=== PATIENT | female | born 1980 | race Caucasian/White ===

== ENCOUNTER 2023-06-10 16:02 | Emergency (ER) | payer BC, SELFPAY ==
--- NOTE | ~2023-06-10 | XR_ITS ---
EXAMINATION: XR nasal bones min 3V DATE: 06/10/2023 16:33 INDICATION: Nose pain. Fall. TECHNIQUE: 3 views of the nasal bones were obtained. COMPARISON: None. FINDINGS: Bone alignment is normal. No fracture. IMPRESSION: 1. Normal nasal bones. Reviewed, dictated and finalized at location E. IMPRESSION: 1. Normal nasal bones.
--- NOTE | 2023-06-10 16:03 | ED.HEATRA ---
HPI - Head Injury General Chief complaint: Fall Stated complaint: Nose injury Time Seen by Provider: 06/10/23 16:03 Source: patient Mode of arrival: ambulatory Limitations: no limitations History of Present Illness HPI Narrative: Aida is a 42-year-old female patient presenting to the clinic today with complaints of a nose injury that occurred Tuesday of last week. She reports she fell face forward on some concrete and injured her nose. States she did have some epistaxis at that time but does not know which side the epistaxis occurred in her nose. States she has tenderness over the cartilage of the nose and difficulty taking a breath through her nose. Consult today a ENT today and they requested her to come in and get x-rays and a disc. Related Data Home Medications Medication Instructions Recorded Confirmed buprenorphine 8 mg-naloxone 2 mg 1 tablet sublingual DAILY 06/10/23 06/10/23 sublingual tablet Allergies Allergy/AdvReac Type Severity Reaction Status Date / Time Sulfa (Sulfonamide Allergy Rash Verified 06/10/23 16:20 Antibiotics) Review of Systems Review of Systems: Pertinent positives per HPI. Patient denies any fever, chills, rash, headache, visual changes, dizziness, cough, shortness of breath, chest pain, palpitations, nausea, vomiting, diarrhea, constipation, abdominal pain, or any urinary issues. PMFSH Comments At the time of my signature, I reviewed and agree with the nursing past medical, surgical, social, and family history. There is no relevant family history pertinent to the patient complaint. Exam Narrative: General: Well-developed, well nourished, in no apparent distress Head: Normocephalic, atraumatic Eyes: Pupils equally round and reactive to light bilaterally, EOM intact, sclera and conjunctive clear, no discharge, lids normal Ears: TMs intact and clear, ear canals clear, no drainage, grossly hearing normal. Nose: Nares patent, no discharge, mild inflammation, no sinus tenderness. No tenderness over the nasal bridge, tenderness over the distal cartilage of the nose Mouth: Oral pharynx without lesions or masses, good dentition, MMM. Neck: Supple, trachea midline, no enlargement of anterior or posterior cervical nodes, no thyroid masses or goiter palpable. Cardio: Regular rate and rhythm, s1 and s2 normal, no murmur appreciated. Resp: Clear to auscultation bilaterally, no rhonchi, rales, wheezing or rubs Course Course Emergency Course: Portions of this record may have been created with voice recognition software. Level of Care: Express Care Visit Vital Signs Vital signs: Vital signs reviewed MDM - Head Injury MDM Narrative Medical decision making narrative: At the time of visit patient is resting comfortably on the exam table. Patient appears to be nontoxic. Diagnostics: X-ray of the nasal bone was negative for fracture or malalignment. Plan: I suspect patient has a nasal contusion. Supportive measures were discussed with the patient and they voiced understanding discharge instructions and agrees to treatment plan. Return precautions reviewed Differential Diagnosis Differential diagnosis: Likely closed head injury and other (Nasal bone fracture, nasal contusion, epistaxis, nasal trauma) Imaging Data Radiologist's impression: ITS Impressions Nasal Bones X-Ray 06/10/23 16:34 IMPRESSION: 1. Normal nasal bones. Discharge Plan Discharge Clinical Impression: Contusion of nose, initial encounter Patient Disposition: Home, Self-Care Condition: Stable Instructions: Antibiotic Form, Contusion in Adults (ED) Additional Instructions: X-ray of the nasal bone is negative for any sign of fracture or malalignment. May apply an ice pack to the affected area to help alleviate pain/swelling-20 minutes at a time on and 20 minutes off Increase fluids and stay well hydrated Tylenol/motrin for pain/fever Flonase and OTC antihistam
[2023-06-10 16:21] VITALS: BP 130/78; PULSE 96; RESP 16; TEMP 36.6; O2SAT 100
== END 2023-06-10 16:42 | disposition home or self-care (01) ==
PROVIDERS: Emergency Provider Nurse Practitioner Family; PCP Family Medicine
DX: S00.33XA Contusion of nose, initial encounter (principal); W19.XXXA Unspecified fall, initial encounter
CPT/HCPCS: 70160; 99213; G0463

== ENCOUNTER 2024-08-10 06:31 | Inpatient (IN) | payer BC, SELFPAY ==
--- NOTE | ~2024-08-10 | CT_ITS ---
CT of the Abdomen and Pelvis: Indication: Abdominal pain Technique: 2.5 mm axial scans were obtained through the abdomen and pelvis following intravenous adm inistration of 100 cc of Omnipaque 350. Dose reduction technique was used on this scan by utilizing a utomated exposure control and iterative reconstruction technique. The dose-length product (DLP) was 6 48.49 mGy-cm. Findings: Scans through the lung bases are unremarkable. The liver, spleen, pancreas, gallbladder, adrenals and kidneys are within normal limits. No evidence of aortic aneurysm. No lymphadenopathy. There is circumferential wall thickening of the distal sigmoid colon, with relative caliber change an d prominent stool upstream from the area of wall thickening. Findings suggest mild partial or early l arge bowel obstruction with suspected underlying sigmoid colonic neoplasm. Infectious/inflammatory co litis would be a potential alternative consideration. Images through the pelvis were performed. Urinary bladder unremarkable. No definite adnexal mass pres ent, there is somewhat prominent appearance of the cervix with small nabothian cysts present. Trace p elvic ascites present. Impression: Circumferential wall thickening of the distal sigmoid colon, with prominent stool upstream from this area, suspicious for colonic adenocarcinoma with early or partial large bowel obstruction. Infectious /inflammatory colitis would be a potential alternative consideration. Prominent appearance of the cervix, nonspecific. Reviewed, dictated and finalized at location M. Impression: Circumferential wall thickening of the distal sigmoid colon, with prominent sto ol upstream from this area, suspicious for colonic adenocarcinoma with early or partial large bowel obstruction. Infectious/inflammatory colitis would be a po tential alternative consideration. Prominent appearance of the cervix, nonspecific.
--- NOTE | ~2024-08-10 | US_ITS ---
Pelvic ultrasound. Clinical History: Pelvic pain, torsion Technique: Realtime transabdominal and transvaginal scanning of the pelvis was performed. Color flow Doppler and Doppler spectral analysis were performed. Findings: The uterus is anteverted, and measures 9.1 x 4.3 x 5.1 cm. The endometrial stripe has a th ickness of 5 mm. Myometrium is heterogeneous without definite discrete focal mass. The right ovary measures 2.8 x 2.0 x 3.3 cm. No significant right ovarian or adnexal mass is seen. The left ovary measures 3.4 x 1.9 x 2.6 cm. No significant left ovarian or adnexal mass is seen. Vascular flow probably present in both ovaries on Doppler spectral analysis. There is small amount of free fluid in the cul de sac. Impression: No definite evidence for torsion. Small amount of free fluid. Heterogeneous myometrium without discrete focal mass. Reviewed, dictated and finalized at [facility]. Impression: No definite evidence for torsion. Small amount of free fluid. Heterogeneous myometrium without discrete focal mass.
--- NOTE | ~2024-08-10 | XR_ITS ---
XR abdomen/kub 1V Ordering provider: Leela Hale MD History: . abdominal pain . Comparison: None. FINDINGS: BOWEL: Bowel is distended with gases. Nonobstructive bowel gas pattern. ORGANOMEGALY: None. SIGNIFICANT PATHOLOGIC CALCIFICATIONS: None. OTHER: No free air is seen under the diaphragm. IMPRESSION: NO ACUTE ABDOMINAL FINDINGS. Reviewed, dictated and finalized at location A.
[2024-08-10 06:34] VITALS: BP 129/94; PULSE 79; RESP 11; TEMP 37.2; O2SAT 97
[2024-08-10 06:46] LABS: BEDSIDEPREGUCG Negative (Negative)
[2024-08-10 06:53] LABS: Basophils Absolute Auto 0.1 K/mm3 (0.0-0.1); Basophils Percent Auto 0.4 % (0.2-1.2); Eosinophils Percent Auto 0.2 % (0-4.4); Hematocrit 41.6 % (37.0-47.0); Hemoglobin 13.5 g/dL (12.0-15.0); Immature Granulocyte Absolute 0.07 K/mm3 (0.00-0.031); Immature Granulocyte Percent A 0.4 % (0-0.5); Lymphocytes Percent Auto 10.5 % (18.3-44.2); Mean Corpuscular HGB Conc 32.5 g/dl (32-36); Mean Corpuscular Hemoglobin 33.1 pg (26-34); Mean Platelet Volume 9.8 fl (7.4-10.4); Monocytes Absolute Auto 0.9 K/mm3 (0.1-0.6); Monocytes Percent Auto 4.9 % (2.6-8.5); Neutrophils Absolute Auto 15.2 K/mm3 (1.3-6.7); Neutrophils Percent Auto 83.6 % (45.5-73.1); Platelet Count Result 417 k/mm3 (150-375); Red Blood Count 4.08 M/mm3 (4.2-5.4); Red Cell Distribution Width 13.4 % (11.5-14.5); White Blood Count 18.1 K/mm3 (4.5-10.0)
[2024-08-10 07:06] LABS: Add Urine Microscopic? YES; Alanine Aminotransferase 17 U/L (6-35); Albumin Level 4.4 g/dL (3.5-5.1); Alkaline Phosphatase 51 U/L (38-126); Anion Gap 8 mmol/L (4-12); Appearance Urine Cloudy (Clear); Aspartate Amino Transferase 28 U/L (14-36); Bacteria Urine Rare /hpf; Bilirubin Urine 1+ (Negative); Bilirubin,Total 0.5 mg/dL (0.2-1.3); Blood Urea Nitrogen 10 mg/dL (7-17); Blood Urine Negative (Negative); Calcium 9.5 mg/dL (8.4-10.2); Carbon Dioxide 28 mmol/L (22-30); Chloride 102 mmol/L (98-107); Color Urine Dark Yellow (Yellow); Estimated CRCL calculation 81 ml/min; Estimated Glomerular Filt Rate > 60; Glucose 114 mg/dL (65-110); Glucose Urine UA Negative (Negative); Ketones Urine 2+ mg/dL (Negative); Leukocyte Esterase Ur 1+ LEU/UL (Negative); Lipase 157 U/L (23-300); Mucus Urine Present /lpf; Need Manual Microscopic Reviewed; Nitrate Urine Negative (Negative); Protein Urine Trace mg/dL (Negative); Sodium 138 mmol/L (137-145); Specific Grav Ur 1.027 (1.001-1.035); Squamous Epithelial Cell Urine Many /hpf (Few); Total Protein 7.7 g/dL (6.3-8.2); pH Urine 5.5 (5.0-9.0)
[2024-08-10] MEDS: ONDANSETRON INJ 4 MG/2 ML VIAL IV PUSH (07:14)
[2024-08-10] MEDS: MORPHINE SULFATE (*CRX) 4 MG/ML INJ IV PUSH (07:14)
--- NOTE | 2024-08-10 07:21 | ED_ITS ---
HPI - Abdominal Pain General Chief Complaint: Abdominal Pain Stated Complaint: abd pain Time Seen by Provider: 08/10/24 06:56 History of Present Illness HPI narrative: Yesterday patient started having severe pain to her right lower abdomen, this comes and goes, has been intermittently much worse and better, accompanied with nausea vomiting. She was also having some dysuria so thought that a may be a UTI, started taking Macrobid and nausea medicine, however now the pain has come back strong. Related Data Home Medications ?Medication ?Instructions ?Recorded ?Confirmed ?Last Taken ?Type buprenorphine 8 mg-naloxone 2 mg 1 tablet sublingual DAILY 06/10/23 06/10/23 Unknown History sublingual tablet Allergies Allergy/AdvReac Type Severity Reaction Status Date / Time Sulfa (Sulfonamide Allergy Rash Verified 06/10/23 16:20 Antibiotics) Review of Systems 2 Review of Systems: All systems reviewed & are unremarkable except as noted in HPI and below Exam 2 Narrative: EXAMINATION OF ORGAN SYSTEMS/BODY AREAS: Constitutional: Vital signs per nursing GENERAL: Appears quite comfortable in the bed HEAD: Normal with no signs of head trauma. EYES: EOMI, conjunctiva normal ENT: Hearing grossly intact LUNGS: Nonlabored breathing. HEART: [Regular rate and rhythm] ABD: [Soft], some tenderness to palpation right lower quadrant EXT: Normal range of motion SKIN: [No rashes or lesions.] NEURO: [Alert and oriented x 3. No gross focal sensory or strength deficits.] PSYCH: Normal affect Course Vital Signs Vital signs: Vital Signs Temperature 99 F 08/10/24 06:34 Pulse Rate 79 08/10/24 06:34 Respiratory Rate 11 L 08/10/24 06:34 Blood Pressure 129/94 H 08/10/24 06:34 Pulse Oximetry 97 08/10/24 06:34 Oxygen Delivery Room Air 08/10/24 06:34 Temperature 99 F 08/10/24 06:34 Pulse Rate 90 08/10/24 10:04 Respiratory Rate 18 08/10/24 10:04 Blood Pressure 122/88 08/10/24 10:04 Pulse Oximetry 100 08/10/24 10:04 Oxygen Delivery Room Air 08/10/24 06:34 MDM - Abdominal Pain MDM Narrative Medical decision making narrative: Electronic medical record was reviewed. Patient presented to the ED with complaint of [right lower abdominal pain and vomiting]. Vitals [were within acceptable limits]. Physical exam revealed soft abdomen with tenderness to the right lower/suprapubic abdomen. Based on the patient's history and physical exam, my differential includes but is not limited to [ovarian torsion, pyelonephritis, appendicitis, constipation, gastroenteritis]. [IV access was established by nursing staff. Patient was given zofran, morphine]. CBC, BMP, lipase, LFTs, bilirubin and alk phos, UA were obtained. Labs were pertinent for white count 18; UA consistent with possible UTI so this plus her white count, I have started antibiotics. Transvaginal ultrasound without any obvious ovarian abnormality. [Decision was made to obtain a CT-abdomen to evaluate for acute abdominal process. CT-abdomen per radiology interpretation concerning for signs of possible adenocarcinoma of colon with bowel obstruction] Findings discussed with patient. 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 Discussed case with Gastroenterology plan for possible colonoscopy on Tuesday. Discussed case with general surgery who will consult on patient and discussed case with hospitalist. Patient still having consistent pain. She is on Suboxone, additional doses of pain medication provided. She is agreeable to admission for pain control and further workup. Lab Data 08/10/24 06:45 08/10/24 06:45 Labs: Lab Results 08/10/24 Range/Units 06:45 WBC 18.1 H (4.5-10.0) K/mm3 RBC 4.08 L (4.2-5.4) M/mm3 Hgb 13.5 (12.0-15.0) g/dL Hct 41.6 (37.0-47.0) % MCV 102.0 H (80-100) fl MCH 33.1 (26-34) pg MCHC 32.5 (32-36) g/dl RDW 13.4 (11.5-14.5) % Plt Count 417 H (150-375) k/mm3 MPV 9.8 (7.4-10.4) fl Immature Gran % (Auto) 0.4 (0-0.5) % Neut % (Auto) 83.6 H (45.5-73.1) % Lymph % (Auto) 10.5 L (18.3-44.2) % Nance % (Auto) 4.9 (2.6-8.5) % Eos % (Auto) 0.2 (0-4.4) % Baso % (Auto) 0.4 (0.2-1.2) % Lymph # (Auto) 1.90 (0.9-3.2) K/mm3 Nance # (Auto) 0.9 H (0.1-0.6) K/mm3 Eos # (Auto) 0.0 (0-0.3) K/mm3 Baso # (Auto) 0.1 (0.0-0.1) K/mm3 Abs Immat Gran (auto) 0.07 H (0.00-0.031) K/mm3 Absolute Neuts (auto) 15.2 H (1.3-6.7) K/mm3 Absolute Nucleated RBC 0.000 (0.0-0.012) K/mm3 Nucleated RBC % 0.0 (0.0-0.2) % Sodium 138 (137-145) mmol/L Potassium 4.0 (3.4-5.0) mmol/L Chloride 102 (98-107) mmol/L Carbon Dioxide 28 (22-30) mmol/L Anion Gap 8 (4-12) mmol/L BUN 10 (7-17) mg/dL Creatinine 0.83 (0.7-1.0) mg/dL Estim Creat Clear Calc 81 ml/min Estimated GFR > 60 (59 - ) Glucose 114 H (65-110) mg/dL Calcium 9.5 (8.4-10.2) mg/dL Total Bilirubin 0.5 (0.2-1.3) mg/dL AST 28 (14-36) U/L ALT 17 (6-35) U/L Alkaline Phosphatase 51 (38-126) U/L Total Protein 7.7 (6.3-8.2) g/dL Albumin 4.4 (3.5-5.1) g/dL Lipase 157 (23-300) U/L Urine Color Dark yellow (Yellow) Urine Appearance Cloudy H (Clear) Urine pH 5.5 (5.0-9.0) Ur Specific [place] 1.027 (1.001-1.035) Urine Protein Trace (Negative) mg/dL Urine Glucose (UA) Negative (Negative) mg/dL Urine Ketones 2+ H (Negative) mg/dL Ur Blood (Man) Negative (Negative) Urine Nitrate Negative (Negative) Urine Bilirubin 1+ H (Negative) Urine Urobilinogen 1.0 (<2.0) mg/dL Add Ur Microanalysis Reviewed Leukocyte Esterase Rfl 1+ H (Negative) MEENU/UL Urine RBC 3-5 H (0-2) /hpf Urine WBC 11-20 H (0-3) /hpf Ur Squamous Epith Cells Many H (Few) /hpf Urine Bacteria Rare /hpf Urine Casts 3-5 Urine Mucus Present /lpf POC Urine HCG, Qual Negative (Negative) Imaging Data Radiologist's impression: ITS Impressions Abdomen/Pelvis CT 08/10/24 07:50 Impression: Circumferential wall thickening of the distal sigmoid colon, with prominent stool upstream from this area, suspicious for colonic adenocarcinoma with early or partial large bowel obstruction. Infectious/inflammatory colitis would be a potential alternative consideration. Prominent appearance of the cervix, nonspecific. Transvaginal US 08/10/24 08:24 Impression: No definite evidence for torsion. Small amount of free fluid. Heterogeneous myometrium without discrete focal mass. Discharge Plan Discharge Clinical Impression: Large bowel obstruction Patient Disposition: Still a Patient Condition: Serious Instructions: Antibiotic Form Patient Language: Kiswahili Prescriptions: No Action buprenorphine-naloxone 8-2 mg tablet, sublingual 1 tablet SUBLINGUAL DAILY Follow-up/Referrals: UNKNOWN,DOCTOR [Primary Care Provider] -
--- OUTSIDE RECORDS SUMMARY | 2024-08-10 07:21 | XMS_ITS | Data Portability ---
Author Organization [facility]ly [facility] Address [address] [place] [address] Care Team Providers Care Supervisor Compressed Yeast Name Role Phone SADAF GABRIEL Referring Provider [phone] ML STEVENS Urogynecologist Assessment No assessment recorded. Plan of Treatment Reminders Order Date Submit Date Provider Last Modified By Organization Details Last Modified Time Details Appointments None recorded. Lab progesteron e, serum 2021 [facility], [address], [place], [address], 23:33:30 testosteron e, free + total, serum 2021 [employer] [facility], [address], [place], [address], 05:50:09 estradiol, serum 2021 [facility], [address], [place], [address], 05:50:11 lh + FSH, serum 2021 [facility], [address], [place], [address], 05:50:10 urinalysis, dipstick 01/06/ 2022 01/06/2 022 [email or web address] 1 In-Office Order, Internal Use Only DO Not Attach Compendium DO Not Attach Compendium, Do Not Delete/merge, [id number] 08:49:25 estradiol, serum 2020 [facility] ([facility] [address] , [place], [address], 16:33:16 progesteron e, serum 2020 [facility] ([facility]), [address] , [place], [address], 16:33:16 testosteron e, total, serum 2020 [facility] ([facility]), [address] , [place], [address], 16:33:16 urinalysis, dipstick 2020 [email or web address] 1 In-Office Order, Internal Use Only DO Not Attach Compendium DO Not Attach Compendium, Do Not Delete/merge, [id number] 13:09:07 Referral breast surgery referral 2021 [email or web address] Jyoti Caballero MD (Virtual Visits Available), [address] , [place], [address], 12:44:33 [email or web address] physical therapy referral - Please note Centralized Provider Scheduling does not schedule for the intended provider or specialty and is routing the referral to the specialists practice for scheduling. 2020 [email or web address] Not available 14:12:26 Procedures None recorded. Surgeries None recorded. Imaging MAMMO, screening, tomosynthes is, bilateral 2021 [facility], [address] , [place], [address], 15:40:21 Medication Orders Diazepam 10 mg suppositori es - CAG 2020 021 ABBY [facility], [address], [address], 16:31:26 Patient TargetsNo targets recorded. Patient Instructions Encounter Date Encounter Id Patient Instructions Last Modified By Organization Details Last Modified Time 10/17/2020 [id number] Bladder Pain Syndrome (BPS): Care Instructions [email or web address] Not available 10/17/2020 13:09:07 Reason for Referral Urogynecology Physical Thera py Referral for Pelvic floor dysfunction PF dysfunction, IC, and chronic constipation Please note Centralized Provider Scheduling does not schedule for the intended provider or specialty and is routing the referral to the specialists practice for scheduling. Referring Physician: Ml Stevens Urogynecology, Encounter Date: 10/17/2020 Breast Surgery Referral for BRCA1 gene mutation detected hx abnormal genetic testing w/family hx of breast cancer. ASHLYN obtained to get records Referring Physician: Ml Stevens Urogynecology, Encounter Date: 02/26/2021 Results Created Date Observation Date Name Description Value Unit Range Abnormal Flag Note LastModifiedBy Organization Detail LastModifiedTime 10/18/1910/17/2020 urina lysis , dipst ick Glucose Negati ve Not Available In-Office Order Internal Use Only DO Not Attach Compendium DO Not Attach Compendium, Do Not Delete/merge, [id number] 10/17/2020 12:50:25 10/18/1910/17/2020 urina lysis , dipst ick Bilirubin Negati ve Not Available In-Office Order Internal Use Only DO Not Attach Compendium DO Not Attach Compendium, Do Not Delete/merge, [id number] 10/17/2020 12:50:25 10/18/1910/17/2020 urina lysis , dipst ick Ketone Negati ve Not Available In-Office Order Internal Use Only DO Not Attach Compendium DO Not Attach Compendium, Do Not Delete/merge, [id number] 10/17/2020 12:50:25 10/18/1910/17/2020 urina lysis , dipst ick Specific [place] <=1.00 5 (Ref range: 1.005- 1.030) Not Available In-Office Order Internal Use Only DO Not Attach Compendium DO Not Attach Compendium, Do Not Delete/merge, [facility] 10/17/2020 12:50:25 10/18/1910/17/2020 urina lysis , dipst ick Occult Blood Trace- intact Not Available In-Office Order Internal Use Only DO Not Attach Compendium DO Not Attach Compendium, Do Not Delete/merge, [facility] 10/17/2020 12:50:25 10/18/1910/17/2020 urina lysis , dipst ick pH 6.5 (Ref range: 5.0-8. 0) Not Available In-Office Order Internal Use Only DO Not Attach Compendium DO Not Attach Compendium, Do Not Delete/merge, [facility] 10/17/2020 12:50:25 10/18/1910/17/2020 urina lysis , dipst ick Protein Negati ve Not Available In-Office Order Internal Use Only DO Not Attach Compendium DO Not Attach Compendium, Do Not Delete/merge, [facility] 10/17/2020 12:50:25 10/18/1910/17/2020 urina lysis , dipst ick Urobilinogen 0.2 (Ref range: 0.2-1. 0 EU/dl) Not Available In-Office Order Internal Use Only DO Not Attach Compendium DO Not Attach Compendium, Do Not Delete/merge, [facility] 10/17/2020 12:50:25 10/18/1910/17/2020 urina lysis , dipst ick Nitrite Negati ve Not Available In-Office Order Internal Use Only DO Not Attach Compendium DO Not Attach Compendium, Do Not Delete/merge, [id number] 10/17/2020 12:50:25 10/18/1910/17/2020 urina lysis , dipst ick Leukocytes Negati ve Not Available In-Office Order Internal Use Only DO Not Attach Compendium DO Not Attach Compendium, Do Not Delete/merge, [facility] 10/17/2020 12:50:25 10/18/19 21 10/17/2020 urina lysis , dipst ick Appearance Clear Not Available In-Offi ce Order Internal Use Only DO Not Attach Compendium DO Not Attach Compendium, Do Not Delete/merge, [facility] 10/17/2020 12:50:25 10/18/19 21 10/17/2020 urina lysis , dipst ick Color Yellow Not Available In-Office Order Internal Use Only DO Not Attach Compendium DO Not Attach Compendium, Do Not Delete/merge, [facility] 10/17/2020 12:50:25 02/26/19 22 02/26/2021 urina lysis , dipst ick Glucose Negati ve Not Available In-Office Order Internal Use Only DO Not Attach Compendium DO Not Attach Compendium, Do Not Delete/merge, [facility] 02/26/2021 08:46:26 02/26/19 22 02/26/2021 urina lysis , dipst ick Bilirubin Negati ve Not Available In-Office Order Internal Use Only DO Not Attach Compendium DO Not Attach Compendium, Do Not Delete/merge, [facility] 02/26/2021 08:46:26 02/26/19 22 02/26/2021 urina lysis , dipst ick Ketone Negati ve Not Available In-Office Order Internal Use Only DO Not Attach Compendium DO Not Attach Compendium, Do Not Delete/merge, [facility] 02/26/2021 08:46:26 02/26/19 22 02/26/2021 urina lysis , dipst ick Specific [place] >=1.03 0 (Ref range: 1.005- 1.030) Not Available In-Office Order Internal Use Only DO Not Attach Compendium DO Not Attach Compendium, Do Not Delete/merge, [facility] 02/26/2021 08:46:26 02/26/19 22 02/26/2021 urina lysis , dipst ick Occult Blood Negati ve Not Available In-Office Order Internal Use Only DO Not Attach Compendium DO Not Attach Compendium, Do Not Delete/merge, [facility] 02/26/2021 08:46:26 02/26/19 22 02/26/2021 urina lysis , dipst ick pH 5.5 (Ref range: 5.0-8. 0) Not Available In-Office Order Internal Use Only DO Not Attach Compendium DO Not Attach Compendium, Do Not Delete/merge, 02/26/2021 08:46:26 02/26/19 22 02/26/2021 urina lysis , dipst ick Protein Negati ve Not Available In-Office Order Internal Use Only DO Not Attach Compendium DO Not Attach Compendium, Do Not Delete/merge, 02/26/2021 08:46:26 02/26/19 22 02/26/2021 urina lysis , dipst ick Urobilinogen 0.2 (Ref range: 0.2-1. 0 EU/dl) Not Available In-Office Order Internal Use Only DO Not Attach Compendium DO Not Attach Compendium, Do Not Delete/merge, 02/26/2021 08:46:02/26/1902/26/2021 urina lysis , dipst ick Nitrite Negati ve Not Available In-Office Order Internal Use Only DO Not Attach Compendium DO Not Attach Compendium, Do Not Delete/merge, 02/26/2021 08:46:26 02/26/19 22 02/26/2021 urina lysis , dipst ick Leukocytes Negati ve Not Available In-Office Order Internal Use Only DO Not Attach Compendium DO Not Attach Compendium, Do Not Delete/merge, 02/26/2021 08:46:02/26/1902/26/2021 urina lysis , dipst ick Appearance Clear Not Available In-Offi ce Order Internal Use Only DO Not Attach Compendium DO Not Attach Compendium, Do Not Delete/merge, 02/26/2021 08:46:26 02/26/19 22 02/26/2021 urina lysis , dipst ick Color Dark Yellow Not Available In-Office Order Internal Use Only DO Not Attach Compendium DO Not Attach Compendium, Do Not Delete/merge, [id number] 02/26/2021 08:46:26 03/27/1903/27/2021 LH FSH 8.2 mIU/m L Erlinda l Range s Male 1.5-1 2.4 mIU/m L Femal e Folli cular 3.5-1 2.5 mIU/m L Mid Cycle 4.7-2 1.5 mIU/m L Lutea l 1.7-7 .7 mIU/m L Post Menop ausal 25.8- 134.8 mIU/m L Metho dolog y is Raysa elect raysa milum inesc ence immun oassa y metho d. Sampl es shoul d not be taken from patie nts recei ving thera py with high bioti n doses (i.e. >5 mg/da y) until at least 8 hours follo wing the last bioti n admin istra tion. For diagn ostic purpo ses, the resul lorena nieto s be asses sed in conju nctio n with the patie nt's medic al histo ry, clini jovanny exami natio n and other findi ngs. Not Available [facility] [address], [place], [address], 03/27/2021 23:33:27 03/27/19 22 03/28/2021 LH LH 5.2 mIU/m L Erlinda l Range s Male 1.7-8 .6 mIU/m l Femal e Folli cular 2.4-1 2.6 mIU/m l Mid Cycle 14.0- 95.6 mIU/m l Lutea l 1.0-1 1.4 mIU/m l Post Menop ausal 13.1- 86.5 mIU/m l Metho dolog y is Raysa elect raysa milum inesc ence immun oassa y metho d. Sampl es shoul d not be taken from patie nts recei ving thera py with high bioti n doses (i.e. >5 mg/da y) until at least 8 hours follo wing the last bioti n admin istra tion. For diagn ostic purpo ses, the resul ts susan rivas alway s be asses sed in conju nctio n with the patie nt's medic al histo ry, clini jovanny exami natio n and other findi ngs. Not Available [place] [address], [place], [address], 03/27/2021 23:33:27 03/27/19 22 03/28/2021 ESTRA DIOL estradiol 39.3 pg/mL Erlinda l Range s Femal e Folli cular 87.7- 173 pg/mL Ovula tion 435-9 08 pg/mL Lutea l 207-3 63 pg/mL Post Menop ausal 51.6- 314 pg/mL Male 41.0- 91.9 pg/mL Metho dolog y is Raysa elect raysa milum inesc ence immun oassa y. Sampl es shoul d not be taken from [facility] recei ving thera py with high bioti n doses (i.e. >5 mg/da y) until at least 8 hours follo wing the last bioti n admin istra tion. For diagn ostic purpo ses, the resul lorena nieto s be asses sed in conju nctio n with [facility], clini jovanny exami natio n and other findi ngs. Not Available [place] [address], [place], [address], 03/27/2021 23:33:28 03/27/19 22 03/28/2021 PROGE STERO NE progesterone 0.241 NG/mL Erlinda l Range s Femal e Folli cular 0.183 - 0.282 ng/mL Ovula tion 1.94 - 6.09 ng/mL Lutea l 13.5 - 20.3 ng/mL Post Menop ausal 0.108 - 0.151 ng/mL Male 0.139 - 0.193 ng/mL Metho dolog y is Raysa elect raysa milum inesc ence immun oassa y metho d. Sampl es shoul d not be taken from patie nts recei ving thera py with high bioti n doses (i.e. >5 mg/da y) until at least 8 hours follo wing the last bioti n admin istra tion. For diagn ostic purpo ses, the resul lorena rivas alway s be asses sed in conju nctio n with the patie nt's medic al histo ry, clini jovanny exami natio n and other findi ngs. Not Available [place] [address], [place], [address], 03/27/2021 23:33:30 03/27/19 22 03/27/2021 TESTO STERO NE, FREE, BIOAV AILAB LE, TOTAL sex hormone binding glob. 37 nmol/ L 17-124 Not Available [place] [address], [place], [address], 04/01/2021 05:18:25 03/27/19 22 04/01/2021 TESTO STERO NE, FREE, BIOAV AILAB LE, TOTAL testosterone , total 25 NG/dL 2-45 For addit ional infor ariella laura e refer to http: //[facility] jemima horowitz.que stdia gnost ics.c om/fa q/ Total Testo stero neLCM [facility] Q165 (This link is being provi ded for infor maninder godoy/ educa molly l purpo ses only. ) This test was devel jeannette and its chon tical perfo rmanc e mine cteri stics have been deter mined by [facility] [place] [place]. It has not been clear ed or appro aristides by the U.S. Food and Drug Admin istra tion. This assay has been valid ated pursu ant to the CLIA regul ation s and is used for clini jovanny purpo ses. Not Available [place] [address], [place], [address], 04/01/2021 05:18:25 03/27/19 22 04/01/2021 TESTO STERO NE, FREE, BIOAV AILAB LE, TOTAL testosterone , free 2.7 pg/mL 0.2-5. 0 Not Available [place] [address], [place], [address], 04/01/2021 05:18:25 03/27/19 22 04/01/2021 TESTO STERO NE, FREE, BIOAV AILAB LE, TOTAL testosterone , bioavailable 5.4 NG/dL 0.5-8. 5 Not Available [facility] [address], [place], [address], 04/01/2021 05:18:25 03/27/19 22 04/01/2021 TESTO STERO NE, FREE, BIOAV AILAB LE, TOTAL albumin 4.4 g/dL 3.6-5. 1 Not Available [facility] [address], [place], [address], 04/01/2021 05:18:25 05/09/19 22 08/30/2019 MRI, catalino t, bilat eral, w/wo contr ast No observ ation record ed. BARCODE Not Available 2021 16:58:30 05/09/19 22 12/02/2018 MAMMO , laurae teresa, bilat eral No observ ation record ed. BARCODE Not Available 2021 16:58:30 Result Notes None recorded. Problems Name Problem SNOMED Code Status Onset Date Resolution Date Notes Provider Name and Address Organization Details Recorded Time Pelvic floor dysfunction 529854210 Active [address] [facility] 2 08:23:12 Menopausal symptom 44911573 Active [address] [facility] 2 08:23:12 Chronic interstitial cystitis 898215916 Active 2020 Rikara Arellano [facility], [facility] 2 08:23:12 Opioid dependence 53208384 Active [address] [facility] 2 08:23:12 Bipolar disorder 96986489 Active 2020 [facility] [address] [facility] 2 08:23:12 Body mass index 30+ - obesity 908407963 Active [address] [facility] 2 08:23:12 Depressive disorder 09021107 Active 2020 Rikara Arellano null, [facility] 2 08:23:12 Attention deficit hyperactivity disorder, predominantly inattentive type 46341272 Active 2020 Rikara Arellano null, [facility] 2 08:23:12 BRCA1 gene mutation detected 793955892 Active 2021 Ml Stevens NP [address] , [place], [address], [facility] 2 15:38:34 Screening for malignant neoplasm of breast Active 2021 Ml Stevens NP [address] , [place], [address], [facility] 2 15:39:56 Irregular periods 17048052 Active 2021 Ml Stevens NP [address] , [place], [address], [facility] 2 05:48:48 Problem Notes None recorded. Procedures Surgical History Date Name Laterality Status Provider Name and Address Organization Details Recorded Time 08/07/19 22 Procedure cancelled [facility] 08/06/2021 08:56:25 06/26/19 22 In and Out Catheterization completed [facility] 06/25/2021 11:39:54 10/18/19 21 In and Out Catheterization completed Ml Stevens NP [address], [place], [address], [facility] 10/18/2020 21:29:26 09/22/19 21 Date of Last Mammogram completed [facility] 10/17/2020 11:22:37 09/22/19 20 Date of Last Pap Smear completed [facility] 10/17/2020 11:22:13 09/22/19 20 Date of Last Colonoscopy completed [facility] 10/17/2020 11:23:38 reconstruction of facial bones completed [facility] 10/17/2020 11:30:34 lithotripsy completed [facility] 10/17/2020 11:30:58 Imaging Results None recorded. Procedure Notes None recorded. Medical Equipment None Reported. Allergies Allergen ID Allergen Name Allergen Category Reaction Reaction Severity Criticality Documentation Date Start Date Code Code System Note Provider Name and Address Organization Details Recorded Time [id number] Substance with sulfonami de structure and antibacte rial mechanism of action (substanc e) medicatio n rash Not available Not available 10/17/2020 [address] [facility] 1 11:20:45 1699065 Bactrim medicatio n Not available Not available Not available 02/26/2021 97987 [address] [facility] 2 08:23:04 Medications Name Sig Start Date Stop Date Status Note LastModified by Organization Details LastModified Time Diazepam 10 mg suppositori es - CAG insert one every 8 hours PRN pain 2020 active Not Available Not Available Not Avai lable quetiapine 25 mg tablet TAKE 1 TO 2 TABLETS BY MOUTH AT BEDTIME active Not Available Not Available No t Available clonidine HCl 0.1 mg tablet TAKE 1 TABLET BY MOUTH EVERY DAY FOR 90 DAYS active Not Available Not Available No t Available prednisone 20 mg tablet TAKE 1 TABLET BY MOUTH EVERY DAY FOR 5 DAYS active Not Available Not Available No t Available Elmiron 100 mg capsule Take 1 capsule 3 times a day by oral route as needed. 2020 active Not Available Not Available Not Avai lable Concerta 36 mg tablet,exte nded release TAKE 1 TABLET BY MOUTH EVERY DAY IN THE MORNING active Not Available Not Available No t Available fluoxetine 10 mg capsule TAKE ONE CAPSULE BY MOUTH ONE TIME DAILY 10/17 completed Not Available Not Available Not Available propranolol 20 mg tablet TAKE ONE TO TWO TABLETS BY MOUTH ONE TIME NEEDED DIRECTED 10/17 completed Not Available Not Available Not Available amoxicillin 875 mg-potassiu m clavulanate 125 mg tablet TAKE 1 TABLET BY MOUTH EVERY 12 HOURS FOR 10 DAYS active Not Available Not Available No t Available Concerta 27 mg tablet,exte nded release TAKE 1 TABLET BY MOUTH EVERY DAY IN THE MORNING FOR 30 DAYS active Not Available Not Available No t Available buprenorphi ne 8 mg-naloxone 2 mg sublingual tablet DISSOLVE 2 TABLETS UNDER THE TONGUE EVERY DAY active Not Available Not Available No t Available moxifloxaci n 0.5 % eye drops active Not Available Not Available Not Available nitrofurant oin monohydrate /macrocryst als 100 mg capsule TAKE 1 CAPSULE BY MOUTH TWICE A DAY FOR 10 DAYS active Not Available Not Available No t Available Suboxone 8 mg-[address] 2 films every day by sublingua l route. active Not Available Not Available No t Available Latuda 40 mg tablet Take 1 tablet every day by oral route. active Not Available Not Available No t Available Viibryd 40 mg tablet TAKE 1 TABLET BY MOUTH EVERY DAY WITH FOOD FOR 30 DAYS active Not Available Not Available No t Available Latuda 60 mg tablet TAKE 1 TABLET BY MOUTH EVERY DAY WITH FOOD active Not Available Not Available No t Available ID NOW COVID-19 Test Kit TEST DIRECTED TODAY active Not Available Not Available No t Available Vitals Date Recorded Respiratory rate Oxygen saturation Oxygen saturation in Arterial blood by Pulse oximetry Heart rate Systolic blood pressure Diastolic blood pressure Provider Name and Address Organization Details Last Updated DateTime 2 16 /min 98 % 98 % 97 /min 110 mm[Hg] 80 mm[Hg] Rika Arellano [facility] 2 08:45:01 Date Recorded Heart rate Systolic blood pressure Diastolic blood pressure Provider Name and Address Organization Details Last Updated DateTime 06/25/2021 84 /min 129 mm[Hg] 80 mm[Hg] Oma Palacio [facility] 06/25/2021 11:39:18 Date Recorded Body temperature Heart rate Oxygen saturation Oxygen saturation in Arterial blood by Pulse oximetry Systolic blood pressure Diastolic blood pressure Provider Name and Address Organization Details Last Updated DateTime 1 98.2 [degF] 70 /min 99 % 99 % 110 mm[Hg] 76 mm[Hg] Radha Kendall [facility]How do you roll? [facility] 1 11:38:40 Social History Question Answer Notes LastModified by [employer] Details LastModified Time Tobacco Smoking Status Former Smoker Radha Kendall [place] [facility] 10/17/2020 11:29:36 What Is Your Level Of Caffeine Consumption? Moderate Information not available 10/17/2020 Sex: Unknown Functional Status Question Answer Note LastModified by [employer] Details LastModified Time Do you use any illicit or recreational drugs? No Information not available 10/17/2020 Do you or have you ever used any other forms of tobacco or nicotine? No Information not available 10/17/2020 What is your level of alcohol consumption? Occasional Information not available 10/17/2020 Mental Status None recorded. Family History Relationship Description Onset Age of this Age Resolved Age Notes LastModified by Organization Details LastModified Time Paternal Grandmother Malignant tumor of breast [email or web address] Not available 2020 11:26:19 Mother Malignant neoplasm of ovary [email or web address] Not available 2020 11:26:42 Father Malignant tumor of pancreas [email or web address] Not available 2020 11:27:08 Paternal Grandfather Malignant tumor of pancreas [email or web address] Not available 2020 11:27:59 Maternal Grandfather Malignant tumor of pancreas [email or web address] Not available 2020 11:28:06 Medical History No medical history recorded. Gynecological History Statement/Question Response Pain with intercourse N Abnormal Pap N Date of Last Mammogram 09/21/2020 Date of Last Colonoscopy 09/22/2019 Date of LMP 10/15/2020 Date of Last Pap Smear 09/22/2019 Mammogram Result Normal Obstetrics History GPAL:G 3 P 2 0 1 2 Type Value Full Term 2 Spontaneous 1 Living 2 Total 3 Immunizations Vaccine Type Date Status Note Provider Nam e and Address Organization Details Recorded Time COVID-19, mRNA, LNP-S, PF, 100 mcg/0.5mL dose or 50 mcg/0.25mL dose 05/31/[address] [facility] 02/26/2021 08:37:22 COVID-19, mRNA, LNP-S, PF, 100 mcg/0.5mL dose or 50 mcg/0.25mL dose 06/27/[address] [facility] 02/26/2021 08:37:22 Past Encounters Encounter ID Performer Location Encounter Start Date Encounter Closed Date Diagnosis/Indication Diagnosis SNOMED-CT Code Diagnosis ICD10 Code Diagnosis Note [id number] Ml Stevens NP [facility] [place] [address],[facility] [address] [place] [address] 10/17/2020 10:04:35 10/17/2020 12:40:54 Increased frequency of urination 530561736 R35.0 Chronic in terstitial cystitis 183827247 N30.10 Follow IC dietTry prelief PRNStart Aloe VeraMay consider hydroxyzin eMay need vaginal valium PRN or bladder instills.R TC in 4 months Pelvic merlyn or dysfunction 500648818 M62.9 Refer to PFPTUse vaginal valium PRNRTC in 4 months Menopausal symptom 62201 002 N95.1 Will draw hormones for baseline due to being symptomati c.RTC in 4 months. [id number] Ml Stevens NP [facility] [place] [address] [address] 02/26/2021 08:30:42 02/26/2021 09:08:41 Overactive urinary bladder 025631767 N32.81 Patient unsure if urine leakage is due to OAB or QUANG Desires UDS to determine how to proceed in the future with her urinary incontinen ce. Pelvic merlyn or dysfunction 148085719 M62.9 Improved Patient did not go to physical therapy or use vaginal Valium. Return to clinic for UDS Screening for malignant neoplasm of breast 623380554 Z12.39 BRCA1 gene mutation detected 418613545 Z15.01 Desires a referral to the [facility] has a history of abnormal BRCA testing and was getting more specific imaging more frequently . Release of informatio n obtained so trying to get her most recent imaging results along with the disc for the radiologis t to review. Return to clinic for UDS Irregular periods [id number] N92.6 Labs ordered based on results will determine plan of care at that point. [id number] Aarti Austin MD [facility] [place] [address] [address] [address] 03/27/2021 10:04:16 03/27/2021 11:49:26 Female stress incontinence [id number] N39.3 [id number] Aarti Austin MD [facility] [place] [address] [address] [address] 03/27/2021 09:02:56 03/27/2021 11:50:00 Female stress incontinence [id number] N39.3 Most bothered by QUANG and coital incontinen ce.Discuss ed urodynamic findings in detail with patient. 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 Plan for Bulkamid.R isks and benefits and alternativ es of the planned surgery were discussed with the patient.Di scussed risks include, but are not limited to hemorrhage , infection, damage to adjacent organs, bowel or bladder dysfunctio n, problems with intercours e and other healing abnormalit ies including dyspareuni a, scar tissue formation. She is aware that if QUANG persists after bulking there is also the option of adding incontinen ce ring if QUANG occurs with specific activities such as tennis or proceeding with midurethra l sling. Chronic in terstitial cystitis [id number] N30.10 Her IC was diagnosed many years ago and has improved with having children. 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 She recently went back to school and is starting a new career so this could trigger symptoms. Will monitor. Hyperhidrosis [id number] R61 Has hormone labs ordered. She will make f/u to discuss results and if no need or does not improve with hormones then would refer to derm. She c/o excessive sweating but it does seem to be associated with a significan t feeling of being hot that just comes on.Aarti Austin MD [id number] Aarti Austin MD [facility] [address],[facility] [address] [place] [address] 06/25/2021 10:04:24 06/25/2021 11:39:49 Female stress incontinence [id number] N39.3 Health Concerns Section Related Observation LastModified by Organization Detai ls LastModified Time None Recorded Concern Status LastModified by Organization Details LastModified Time None Recorded Advance Directives Directive None Recorded Payers Insurance Date Sequence Insurance Name Policy Number Policy Zamarripa Covered Member ID [id number] Member ID Guarantor Name 08/04/2021 1 [employer] [facility] (O) [id number] Amy Greenfield Geovani [id number] Bharti Olivo 04/10/2021 1 [place] [id number] Amy Olivo [id number] Bharti Olivo 10/17/2020 1 [facility] (PPO) Bharti Olivo [id number] Bharti Olivo Notes Date Note Type Note Provider Name and Address Organization Details Recorded Time 10/17/2020 text/html Patient is a 40 year old female who is being referred by Dr. Gabriel for the evaluation of Interstitial CystitisThe she was diagnosed with approximately 20 years ago. She states she had a cystoscopy with hydrodistention in the operating room with a biopsy. She was placed on Elmiron at that time and it was too expensive so she has not been on it for years. She feels her flares more with ovulation or right before her cycle but does not note it with diet. She does note that she has a worsening flare as well when she is not hydrated well. She used to take oral Valium does not seem to help her with her flares but she has not used anything like that in years. She is not on anything preventative either. She has tried oral contraceptives in the past and did not tolerate them well. Not interested in limiting her. That way. She did have an ablation which had minimized her bleeding but did not take it completely away. She thinks that she may be of menopause because she is having some hot flashes and irregular cycles especially over the last 3 to 4 months. When she has a flare I will consist of pain with urination and burning in the bladder along with pressure. She leaks urine with QUANG with laughing, sneezing, intercourse, exercising, and sometimes after stronger urge. She will sometimes wear a pad in which she will change it and is wet. She voids every 3-4 hours during the day and does not need to johns. She does not get up at night. She denies hematuria and recurrent UTIs. She does feel at times that she will empty. She denies prolapse. She has had chronic constipation for as long as she can remember which she has 2 bowel movements per week in which she does not strain. She is not a bowel regimen at this time. Her fluid intake consist of 40 ounces of water a day, 2 cups of coffee which it does not bother her, and occasional tea. She denies alcohol intake. She is sexually active without pain. She does not report vaginal dryness. She has had any treatments or seen any specialists for her urogyn complaints. Ml Stevens, TENANT RELATIONS COORDINATOR [address] , [place], [address], [facility] 10/18/2020 21:53:53 02/26/2021 text/html Ms. Olivo is a 40 yo female here for a 4 month follow up. Report things as far as her IC have improved and seem to be going good. She reports her stress urinary incontinence has gotten worse. She had a negative UA in office today. She wants to proceed with testing for her bladder before she does any treatment. She is not sure if her urinary incontinence is related to activity or bladder contractions. She does have a history of pelvic floor dysfunction she was prescribed diazepam however she states she never filled it because she didn't need it. She would like her hormones tested because her cycles are very irregular and she is sweating all the time. She would also like a referral to the breast center because she has a history of abnormal genetic testing in which when she was out of that area they would do MRIs and mammograms more frequently. She is to obtain a release of information of her most recent imaging along with the discs with the actual images on it to bring to her appointment for her mammogram. BRIANNE:10/17/2020 Patient is a 40 year old female who is being referred by Dr. Gabriel for the evaluation of Interstitial CystitisThe she was diagnosed with approximately 20 years ago. She states she had a cystoscopy with hydrodistention in the operating room with a biopsy. She was placed on Elmiron at that time and it was too expensive so she has not been on it for years. She feels her flares more with ovulation or right before her cycle but does not note it with diet. She does note that she has a worsening flare as well when she is not hydrated well. She used to take oral Valium does not seem to help her with her flares but she has not used anything like that in years. She is not on anything preventative either. She has tried oral contraceptives in the past and did not tolerate them well. Not interested in limiting her. That way. She did have an ablation which had minimized her bleeding but did not take it completely away. She thinks that she may be of menopause because she is having some hot flashes and irregular cycles especially over the last 3 to 4 months. When she has a flare I will consist of pain with urination and burning in the bladder along with pressure.She leaks urine with QUANG with laughing, sneezing, intercourse, exercising, and sometimes after stronger urge. She will sometimes wear a pad in which she will change it and is wet. She voids every 3-4 hours during the day and does not need to johns. She does not get up at night. She denies hematuria and recurrent UTIs. She does feel at times that she will empty.She denies prolapse. She has had chronic constipation for as long as she can remember which she has 2 bowel movements per week in which she does not strain. She is not a bowel regimen at this time.Her fluid intake consist of 40 ounces of water a day, 2 cups of coffee which it does not bother her, and occasional tea. She denies alcohol intake. She is sexually active without pain. She does not report vaginal dryness.She has had any treatments or seen any specialists for her urogyn complaints. Ml Stevens, TENANT RELATIONS COORDINATOR [address], [place], [address], [facility] 03/02/2021 05:50:08 03/27/2021 text/html She is here for urinary incontinence f/u/ She is most bothered by incontinence with activities - Tennis. 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 Has not had her hormone labs checked yet although they were ordered. BRIANNE: 02/26/2021Ms. Olivo is a 40 yo female here for a 4 month follow up. Report things as far as her IC have improved and seem to be going good. She reports her stress urinary incontinence has gotten worse. She had a negative UA in office today. She wants to proceed with testing for her bladder before she does any treatment. She is not sure if her urinary incontinence is related to activity or bladder contractions. She does have a history of pelvic floor dysfunction she was prescribed diazepam however she states she never filled it because she didn't need it. She would like her hormones tested because her cycles are very irregular and she is sweating all the time. She would also like a referral to the breast center because she has a history of abnormal genetic testing in which when she was out of that area they would do MRIs and mammograms more frequently. She is to obtain a release of information of her most recent imaging along with the discs with the actual images on it to bring to her appointment for her mammogram. BRIANNE:10/17/2020 Patient is a 40 year old female who is being referred by Dr. Gabriel for the evaluation of Interstitial CystitisThe she was diagnosed with approximately 20 years ago. She states she had a cystoscopy with hydrodistention in the operating room with a biopsy. She was placed on Elmiron at that time and it was too expensive so she has not been on it for years. She feels her flares more with ovulation or right before her cycle but does not note it with diet. She does note that she has a worsening flare as well when she is not hydrated well. She used to take oral Valium does not seem to help her with her flares but she has not used anything like that in years. She is not on anything preventative either. She has tried oral contraceptives in the past and did not tolerate them well. Not interested in limiting her. That way. She did have an ablation which had minimized her bleeding but did not take it completely away. She thinks that she may be of menopause because she is having some hot flashes and irregular cycles especially over the last 3 to 4 months. When she has a flare I will consist of pain with urination and burning in the bladder along with pressure.She leaks urine with QUANG with laughing, sneezing, intercourse, exercising, and sometimes after stronger urge. She will sometimes wear a pad in which she will change it and is wet. She voids every 3-4 hours during the day and does not need to johns. She does not get up at night. She denies hematuria and recurrent UTIs. She does feel at times that she will empty.She denies prolapse. She has had chronic constipation for as long as she can remember which she has 2 bowel movements per week in which she does not strain. She is not a bowel regimen at this time.Her fluid intake consist of 40 ounces of water a day, 2 cups of coffee which it does not bother her, and occasional tea. She denies alcohol intake. She is sexually active without pain. She does not report vaginal dryness.She has had any treatments or seen any specialists for her urogyn complaints. Aarti Austin MD [address] , [place], [address], [facility] 03/27/2021 21:29:57 OBGyn Episode No OBEpisode recorded.
--- OUTSIDE RECORDS SUMMARY | 2024-08-10 07:21 | XMS_ITS | Clinical Summary ---
Author Organization [facility] Address [address] [place] [address] Care Team Providers Care Conduit Worker Name Role Phone Cyndee Guillermo MD Primary Care Provider [phone] Source Comments [facility],non-owned Affiliates and Associated Physician Practices is amultiple site organization consisting of ambulatory clinics and hospital sitesin [place], [place], [place] and [place]. This disclosure is being madepursuant to the Care Everywhere program and may not contain all information available regarding this patient. Last updated 17.[facility] [employer] Allergies Active Allergy Reactions Criticality Noted Date Comments Sulfa Drugs Rash Medium 09/29/2013 Sulfamethoxazole W-Trimethoprim Rash Medium /02/2009 Medications * Be aware that medications may not be up to date on this document. Alwaysverify current medications with the patient. baclofen (Lioresal) 10 MG tablet Take 1 (one) tablet by mouth 3 Active buprenorphine- naloxone (Suboxone) 8-[address] 1 TABLET EVERY DAY BY SUBLINGUAL ROUTE FOR 30 DAYS. Active lurasidone (Latuda) 60 MG tablet Take 0.5 (one-half) tablet by mouth once daily 3 Active Methylphenidat e HCl (methylphenida te CR) 36 MG tablet Take 1 (one) tablet by mouth every morning Active oxyBUTYnin CR 24hr (Ditropan-XL) 5 MG tablet Take 1 (one) tablet by mouth once daily 3 Active phenazopyridin e (Pyridium) 200 MG tablet Take 1 (one) tablet by mouth 3 times daily as needed 30 tablet 11 3 Active ibuprofen (Motrin) 600 MG tablet Take 1 (one) tablet by mouth every 6 hours as needed for Pain 40 tablet 3 Active acetaminophen (Tylenol) 500 MG tablet Take 2 (two) tablets by mouth every 6 hours as needed for Fever or Pain Maximum allowable Acetaminophen amount = 4 Grams (4000 mg) / 24 hours. 3 Active diazePAM (Valium) 10 MG tablet Crush tablet and place in the vagina every 1 -2 days prn for pain. 20 tablet 1 3 Active Family History Medical History Relation Name Comments Cancer Father pancreatic Hypertension Father Cancer Mother ovarian Cancer Paternal Grandmother breast Relation Name Status Comments Father Mother Paternal Grandmother Social History Tobacco Use Types Packs/Day Years Used Date Smoking Tobacco: Former Cigarettes Q uit: 2016 Smokeless Tobacco: Never Tobacco Cessation:Counseling Given: Not Answered Alcohol Use Standard Drinks/Week Comments Yes 2 (1 standard drink = 0.6 oz pur e alcohol) occassional Comments No Sex and Gender Information Value Date Recorded Sex Assigned at Not on file Legal Sex Female 11:03 AM CDT Gender Identity Not on file Sexual Orientation Not on file Last Filed Vital Signs Vital Sign Reading Time Taken Comments Blood Pressure 107/73 12/14/2022 2:49 PM CDT Pulse 70 12/14/2022 2:49 PM CDT Temperature 36.4 C (97.6 F) 12/14/2022 2:14 PM CDT Respiratory Rate 18 12/14/2022 2:49 PM CDT Oxygen Saturation 99% 12/14/2022 2:49 PM CDT Inhaled Oxygen Concentration - - Weight 83 kg (183 lb) 12/14/2022 11:04 AM CDT Height 168.9 cm (5' 6.5) 12/14/2022 11:04 AM CD T Body Mass Index 29.09 12/14/2022 11:04 AM CDT Plan of Treatment Health Maintenance Due Date Last Done Comments COLOGUARD (AGES 45-75) - COL ON CA SCREENING 1978 COLON MONITORING 1978 COLONOSCOPY - COLON CA SCREENING 1978 CT COLONOGRAPHY - COLON CA SCREENING 1978 Colorectal Cancer Screening 1978 FIT - COLON CA SCREENING 1978 FLEX SIG - COLON CA SCREENING 1978 LIPID TESTING 1978 MAMMOGRAM 1978 PAP SMEAR 1978 HIV SCREENING 1993 HEPATITIS C SCREENING 06/25/1996 DTAP/TDAP/TD VACCINES (1 - Tdap) 1997 HEPATITIS B VACCINE (1 of 3 - 19+ 3-dose series) 1997 SCREENING FOR DIABETES 12/10/2022 12/11/2019 COVID-19 VACCINE (1 - 2023-2 5 season) 2023 DEPRESSION SCREENING 02/22/2024 INFLUENZA VACCINE (Season Ended) 2024 11/27/19 ZOSTER VACCINE (1 of 2) 2028 HIB VACCINE Aged Out No longer eligi ble based on patient's age to complete this topic HPV VACCINE Aged Out No longer eligi ble based on patient's age to complete this topic MENINGOCOCCAL (Group B) VACC INE SHARED DECISION-MAKING Aged Out No longer eligibl e based on patient's age to complete this topic MENINGOCOCCAL GROUPS A/C/Y/W VACCINE Aged Out No longer eligible b ased on patient's age to complete this topic PNEUMOCOCCAL VACCINE Aged Out No long er eligible based on patient's age to complete this topic Medical Devices Implanted Type Area Dairy Chemist Device Identifier Shelf Expiration Date Model / Serial / Lot Sys Ureth Supp Rogelio Lynx Adv Spbc Implanted:Qty: 1 on 12/14/2022 by Margarita Holman MD at [facility] N/A: [employer] [facility] 07/04/2025 [id number] / / [id number] Insurance [employer] Care Teams Conduit Worker Relationship Specialty Start Date End Date Cyndee Guillermo MD [facility] [place] [id number] PCP - General Family Medicine 11/17/22
--- OUTSIDE RECORDS SUMMARY | 2024-08-10 07:21 | XMS_ITS | Patient Health Record ---
Author Organization [facility] As [employer] Address [address] [place] [address] Care Team Providers Care [employer] Room Service Supervisor Name Role Phone Farhan Lopez Unavailable [phone] Ivon Perdomoanna Unavailable [phone] Allergies Allergen (clinical drug ingredient) Drug/Non Drug Allergy documented on EMR Reaction Allergy Type Onset Date Status Substance with sulfonamide structure and antibacterial mechanism of action (substance) SULFA (SULFONAMIDE ANTIBIOTICS) (uncoded) Unknown Allergy 07/12/2023 Active Results Component Value Reference Range Notes UDT Reviewed date:10/27/2023 04:12:01 PM Interpretation: Performing Lab: Notes/Report: THC NEG 0 - 50 ng/ml Cocaine NEG 0 - 300 ng/ml Amphetamine NEG 0 - 1000 ng/ml Buprenorphine (BUP) POS 0 - 10 ng/ml Secobarbital (Bar) NEG 0 - 300 ng/ml Oxazepam (BZO) NEG 0 - 300 ng/ml 7-dyyuqlhrgq-7,6-dmmirrlr-5, 3-diphe nylpyrrolidine (EDDP) NEG 0 - 300 ng/ml Methamphetamine (MET) NEG 0 - 1000 ng/ml Methylenedioxymethamphetamin e (MDMA) NEG 0 - 500 ng/ml Morphine (MOP 300/SOZ7507) NEG 0 - 300 ng/ml Methadone (MTD) NEG 0 - 300 ng/ml Phencyclidine (PCP) NEG 0 - 25 ng/ml Nortriptyline (TCA) NEG 0 - 1000 ng/ml Oxycodone NEG 0 - 300 ng/ml x NEG 0 - 300 ng/ml UDT Reviewed date:03/12/2024 12:39:45 PM Interpretation: Performing Lab: Notes/Report: THC N 0 - 50 ng/ml Cocaine N 0 - 300 ng/ml Amphetamine N 0 - 1000 ng/ml Buprenorphine (BUP) P 0 - 10 ng/ml Secobarbital (Bar) N 0 - 300 ng/ml Oxazepam (BZO) N 0 - 300 ng/ml 4-jwhdntizjn-0,3-xlvsknhn-3, 3-diphe nylpyrrolidine (EDDP) N 0 - 300 ng/ml Methamphetamine (MET) N 0 - 1000 ng/ml Methylenedioxymethamphetamin e (MDMA) N 0 - 500 ng/ml Morphine (MOP 300/[id number]) N 0 - 300 ng/ml Methadone (MTD) N 0 - 300 ng/ml Phencyclidine (PCP) N 0 - 25 ng/ml Nortriptyline (TCA) N 0 - 1000 ng/ml Oxycodone N 0 - 300 ng/ml x N 0 - 300 ng/ml UDT Reviewed date:05/07/2024 05:04:47 PM Interpretation: Performing Lab: Notes/Report: THC N 0 - 50 ng/ml Cocaine N 0 - 300 ng/ml Amphetamine N 0 - 1000 ng/ml Buprenorphine (BUP) P 0 - 10 ng/ml Secobarbital (Bar) N 0 - 300 ng/ml Oxazepam (BZO) N 0 - 300 ng/ml 9-epeyoyalgy-3,9-kcxgkpyy-2, 3-diphe nylpyrrolidine (EDDP) N 0 - 300 ng/ml Methamphetamine (MET) N 0 - 1000 ng/ml Methylenedioxymethamphetamin e (MDMA) N 0 - 500 ng/ml Morphine (MOP 300/[id number]) N 0 - 300 ng/ml Methadone (MTD) N 0 - 300 ng/ml Phencyclidine (PCP) N 0 - 25 ng/ml Nortriptyline (TCA) N 0 - 1000 ng/ml Oxycodone N 0 - 300 ng/ml x N 0 - 300 ng/ml UDT Reviewed date:09/07/2023 10:15:32 AM Interpretation: Performing Lab: Notes/Report: THC N 0 - 50 ng/ml Cocaine N 0 - 300 ng/ml Amphetamine N 0 - 1000 ng/ml Buprenorphine (BUP) P 0 - 10 ng/ml Secobarbital (Bar) N 0 - 300 ng/ml Oxazepam (BZO) N 0 - 300 ng/ml 1-jkwfciydxr-6,3-vconfpyd-2, 3-diphe nylpyrrolidine (EDDP) N 0 - 300 ng/ml Methamphetamine (MET) N 0 - 1000 ng/ml Methylenedioxymethamphetamin e (MDMA) N 0 - 500 ng/ml Morphine (MOP 300/[id number]) N 0 - 300 ng/ml Methadone (MTD) N 0 - 300 ng/ml Phencyclidine (PCP) N 0 - 25 ng/ml Nortriptyline (TCA) N 0 - 1000 ng/ml x N 0 - 300 ng/ml DRUG MONITOR,AMPHETAMINE, W/ DL, QN URINE ([id number]) Reviewed date:03/26/2024 09:48:39 AM Interpretation: Performing Lab:[id number] Homer Acosta, Director - [id number] [place] [facility] Notes/Report: FASTING: NO Amphetamine NEGATIVE <250 ng/mL Methamphetamine NEGATIVE <250 ng/mL Amphetamines Comments See LD T Notes Notes and Comments This drug testing is for medical treatment only. Analysis was performed as non-forensic testing and these results should be used only by healthcare providers to render diagnosis or treatment, or to monitor progress of medical conditions. Buprenorphine Notes: Buprenorphine, Norbuprenorphine detected is consistent with the use of the drug(s) Buprenorphine or Buprenorphine with Naloxone. Naloxone may be negative due to poor oral bioavailability and/or short half-life. Buprenorphine, Norbuprenorphine, Naloxone detected is consistent with the use of the drug Buprenorphine and Naloxone. LDT Notes: Confirmation tests were developed and their analytical performance characteristics have been determined by [facility]. It has not been cleared or approved by the FDA. This assay has been validated pursuant to the CLIA regulations and is used for clinical purposes. Healthcare Providers needing Interpretation assistance, please contact us at [phone] ( ) M-F, 8am to 10pm EST DRUG MONITOR, OPIATES EXPAND ED, QN, URINE ([id number]) Reviewed date:03/26/2024 09:48:39 AM Interpretation: Performing Lab:[facility] [address], [place] [id number] Homer Acosta Notes/Report: FASTING: NO Codeine NEGATIVE <50 ng/mL Hydrocodone NEGATIVE <50 ng/mL Hydromorphone NEGATIVE <50 ng/mL Morphine NEGATIVE <50 ng/mL Norhydrocodone NEGATIVE <50 ng/mL Opiates Comments See LDT Not es Noroxycodone NEGATIVE <50 ng/mL Oxycodone NEGATIVE <50 ng/mL Oxymorphone NEGATIVE <50 ng/mL Oxycodone Comments See LDT N otes DRUG MONITOR, FENTANYL, QN, URINE ([id number]) Reviewed date:03/26/2024 09:48:39 AM Interpretation: Performing Lab:CB, [facility] [address], ConnectYardNifgCB[address] Homer Acosta Notes/Report: FASTING: NO Fentanyl NEGATIVE <0.5 ng/mL Norfentanyl NEGATIVE <0.5 ng/mL Fentanyl Comments See LDT No leeanna DRUG MONITOR, BUP AND NALOXO NE,QN,URINE ([id number]) Reviewed date:03/26/2024 09:48:40 AM Interpretation: Performing Lab:CB, [facility] [address], ConnectYardZihjNA[address] Homer Acosta Notes/Report: FASTING: NO Buprenorphine 223 <2 ng/mL Norbuprenorphine 548 <2 ng/mL Naloxone 610 <2 ng/mL Buprenorphine Comments See B uprenorphine Notes, LDT Notes DRUG MONITOR, COCAINE METAB, QN, URINE ([id number]) Reviewed date:03/26/2024 09:48:40 AM Interpretation: Performing Lab:CB, [facility] [address], MacuLogixOeogXP[address] Homer Acosta Notes/Report: FASTING: NO Benzoylecgonine NEGATIVE <100 ng/mL Cocaine Comments See LDT Not es DRUG MONITOR, NALTREXONE, QN , URIN ([id number]) Reviewed date:03/26/2024 09:48:40 AM Interpretation: Performing Lab:AT, [id number] [facility] [address] Turner Notes/Report: FASTING: NO Naltrexone NEGATIVE <5 ng/mL 6 Beta Naltrexol NEGATIVE <5 ng/mL Naltrexone Comments See LDT Notes Opiates Reviewed date:05/11/2024 09:53:46 AM Interpretation: Performing Lab: Notes/Report: Noroxycodone NEGATIVE 50.0 ng/mL Not Medicated Consistent Norhydrocodone NEGATIVE 50.0 ng/mL Not Medicated Consistent Oxycodone NEGATIVE 50.0 ng/mL Not Medicated Consistent Hydromorphone NEGATIVE 50.0 ng/mL Not Medicated Consistent Hydrocodone NEGATIVE 50.0 ng/mL Not Medicated Consistent Morphine NEGATIVE 50.0 ng/mL Not Medicated Consistent Oxymorphone NEGATIVE 50.0 ng/mL Not Medicated Consistent Codeine NEGATIVE 50.0 ng/mL Not Medicated Consistent Buprenorphine Reviewed date:05/11/2024 09:53:46 AM Interpretation: Performing Lab:[facility], [address] [place] [address], Director - [id number] Notes/Report: An exception occurred while processing this report and so it has incomplete data. Please contact [employer] for assistance. Buprenorphine 215.5 10.0 ng/mL Medicated Cons istent PDF Report [email or web address] Reason For Referral No Information Medications Medication SIG (Take, Route, Frequency, Duration) Notes Start Date End Date Status Triamcinolone Acetonide 0.1% External 07/12/2023 Active Buprenorphine HCl-Naloxone HCl 8-2 MG 1 tablet under the tongue and allow to dissolve Sublingual once a day for 30 days 08/06/2024 09/05/2024 Active Latuda 60 MG 1 tablet in the even ing with food Oral Once a day for 90 days Active Concerta 36 MG 2 tablet in the morn ing Oral Once a day for 30 days 08/06/2024 09/05/2024 Active Social History Tobacco Use: Social History Observation Description Date Details (start date - stop date) Never Smoker NA - NA Sex Assigned At : Social History Observation Description Sex Assigned At Female Tobacco Control (Standard) Question Answer Notes Tobacco use: Nonsmoker AUDIT-C (Standard) Question Answer Notes Did you have a drink contain ing alcohol in the past year? Yes How often did you have six o r more drinks on one occasion in the past year? Less than monthly (1 point) How many drinks did you have on a typical day when you were drinking in the past year? 1 or 2 drinks (0 point) How often did you have a dri nk containing alcohol in the past year? Monthly or less (1 point) Problems Problem Type SNOMED Code ICD Code Onset Dates Problem Status W/U Status Risk Notes Problem Opioid dependence (91571723) Opioid dependence, uncomplicated (F11.20) 07/12/19 Active confirmed Problem Bipolar disorder (39508795) Bipolar disorder, unspecified (F31.9) 07/12/19 Active confirmed Problem Attention deficit hyperactivity disorder, combined type (24839799) Attention-deficit hyperactivity disorder, combined type (F90.2) 07/12/19 Active confirmed Vital Signs Heart Rate 109 /min 05/07/2024 Height-cm 167.64 cm 05/07/2024 Blood pressure diastolic 86 mm Hg 05/07/2024 Weight-kg 86.64 kg 05/07/2024 Height 66.00 in 05/07/2024 Blood pressure systolic 159 mm Hg 05/07/2024 Weight 191 lbs 05/07/2024 BMI 30.82 kg/m2 05/07/2024 Encounters Encounter Location Date Provider Diagnosis [facility] [employer] [place] [id number] [facility] [address] [place] [address] 08/30/2023 Farhan Lopez Bipolar disorder, unspecified F31.9 ; Attention-deficit hyperactivity disorder, combined type F90.2 ; Generalized hyperhidrosis R61 and Opioid dependence, uncomplicated F11.20 [facility] [employer] [facility] [address] [address] 10/27/2023 Farhan Lopez Bipolar disorder, unspecified F31.9 ; Attention-deficit hyperactivity disorder, combined type F90.2 ; Generalized hyperhidrosis R61 and Opioid dependence, uncomplicated F11.20 [facility] [employer] [address] [facility] [address] [place] [address] 12/27/2023 Farhan Lopez [facility] [employer] [facility] [address] [place] [address] 03/12/2024 Farhan Lopez Bipolar disorder, unspecified F31.9 ; Attention-deficit hyperactivity disorder, combined type F90.2 ; Generalized hyperhidrosis R61 and Opioid dependence, uncomplicated F11.20 [facility] [employer] [facility] [address] [place] [address] 05/07/2024 Farhan Lopez Bipolar disorder, unspecified F31.9 ; Encounter for screening for depression Z13.31 ; Encounter for screening for cardiovascular disorders Z13.6 ; Dietary counseling and surveillance Z71.3 ; Attention-deficit hyperactivity disorder, combined type F90.2 ; Generalized hyperhidrosis R61 and Opioid dependence, uncomplicated F11.20 [facility], [employer] [address] [place] [address] 07/23/2024 Farhan Lopez [facility], [employer] [facility] [address] [place] [address] 10/14/2023 Farhan Lopez Attention-deficit hyperactivity disorder, combined type F90.2 [facility], [employer] [facility] [address] [place] [address] 11/22/2023 Farhan Lopez Opioid dependence, uncomplicated F11.20 and Attention-deficit hyperactivity disorder, combined type F90.2 [facility], [employer] [facility] [address] [place] [address] 03/12/2024 Farhan Lopez [facility], [employer] [facility] [address] [place] [address] 08/29/2023 Farhan Lopez Attention-deficit hyperactivity disorder, combined type F90.2 [facility], [employer] [facility] [address] [place] [address] 08/29/2023 Raegan Kurilla [facility], [employer] [facility] [address] [place] [address] 08/29/2023 Raegan Kurilla Opioid dependence, uncomplicated F11.20 [facility], [employer] [facility] [address] [place] [address] 09/26/2023 Farhan Lopez Opioid dependence, uncomplicated F11.20 [facility] [employer] [facility] [address] [place] [address] 10/13/2023 Farhan Lopez [facility], [employer] [facility] [address] [place] [address] 12/23/2023 Farhan Lopez Opioid dependence, uncomplicated F11.20 [facility], [employer] [facility] [address] [place] [address] 02/09/2024 Farhan Lopez Opioid dependence, uncomplicated F11.20 [facility] [employer] [address] [place] [address] 04/17/2024 Farhan Lopez Opioid dependence, uncomplicated F11.20 [facility] [employer] [address] [place] [address] 04/17/2024 Farhan Lopez Attention-deficit hyperactivity disorder, combined type F90.2 [facility] [employer] [facility] [address] [place] [address] 05/20/2024 Farhan Lopez Opioid dependence, uncomplicated F11.20 and Bipolar disorder, unspecified F31.9 [facility] [employer] [facility] [address] [place] [address] 06/29/2024 Farhan Lopez Opioid dependence, uncomplicated F11.20 [facility] [employer] [facility] [address] [place] [address] 06/29/2024 [facility] [employer] [facility] [address] [place] [address] 06/29/2024 [facility] [employer] [facility] [address] [place] [address] 06/29/2024 [facility] [employer] [facility] [address] [place] [address] 07/12/2024 [facility], [employer] [facility] [address] [place] [address] 07/12/2024 [facility] [employer] [facility] [address] [place] [address] 07/14/2024 [facility] [employer] [facility] [address] [place] [address] 07/14/2024 [facility] [employer] [facility] [address] [place] [address] 07/14/2024 Farhan Lopez Opioid dependence, uncomplicated F11.20 [facility], [employer] [facility] [address] [place] [address] 07/20/2024 [facility] [employer] [facility] [address] [place] [address] 07/20/2024 Farhanbrady Devlinoza [facility] [address] [place] [address] 08/06/2024 Farhanbrady Lopez Opioid dependence, uncomplicated F11.20 [facility] [address] [place] [address] 08/06/2024 Farhan Lopez Bipolar disorder, unspecified F31.9 [facility] [address] [place] [address] 08/06/2024 Farhan Lopez Assessments Encounter Date Diagnosis (ICD Code) Assessment Notes Treatment Notes Treatment Clinical Notes Section Notes 11/22/2023 Opioid dependence, uncomplicated (ICD-10 - F11.20) 11/22/2023 Attention-deficit hyperactivity disorder, combined type (ICD-10 - F90.2) 10/14/2023 Attention-deficit hyperactivity disorder, combined type (ICD-10 - F90.2) 08/29/2023 Opioid dependence, uncomplicated (ICD-10 - F11.20) 08/29/2023 Attention-deficit hyperactivity disorder, combined type (ICD-10 - F90.2) 06/29/2024 Opioid dependence, uncomplicated (ICD-10 - F11.20) 09/26/2023 Opioid dependence, uncomplicated (ICD-10 - F11.20) 10/27/2023 Bipolar disorder, unspecified (ICD-10 - F31.9) latuda 60mg daily 1. Insomnia: - Patient reports difficulty falling asleep and an active mind at night. - Possible causes include late Concerta administration or recent increase in physical activity. - Plan: Advise patient to take Concerta earlier in the day and monitor sleep quality. Follow up in one month to reassess sleep issues. 2. Mood stability: - Patient reports no current depression or anxiety symptoms. - Continues on Latuda 60 mg daily with food. - Plan: Continue current medication regimen and monitor mood stability. Follow up in one month. 3. Attention-Defici t/Hyperactivity Disorder (ADHD): - Patient is on Concerta for ADHD management. - Plan: Continue Concerta and adjust administration time to earlier in the day to address insomnia concerns. Follow up in one month. 4. Opioid use disorder: - Patient is stable on Suboxone. - Plan: Continue Suboxone as prescribed and monitor for any changes in opioid use or cravings. Follow up in one month. 5. Medication refills: - Concerta and Latuda prescriptions were sent to the pharmacy on the . - Patient does not need a Latuda refill yet. - Plan: Ensure patient receives Concerta refill in a timely manner. Follow up in one month for medication management and refills as needed. 1. Stable mental health status: - Patient reports no current issues with depression or anxiety. Plan: - Continue current medications and monitor for any changes in mental health status. 2. Attention Deficit Hyperactivity Disorder (ADHD): - Patient is currently on Concerta 72 mg daily (two 36 mg tablets). There was a recent issue with the prescription, but it has been resolved, and the patient has an adequate supply. Plan: - Continue Concerta at the current dose and monitor for effectiveness and any side effects. 3. Opioid Use Disorder (in remission): - Patient is currently on Suboxone 8-2 mg daily and reports no issues. Plan: - Continue Suboxone at the current dose. - Refill prescription for one month. 4. Bipolar Disorder (stable): - Patient is currently on Latuda 60 mg daily and reports no issues. The patient has an adequate supply of medication. Plan: - Continue Latuda at the current dose and monitor for any changes in mood or behavior. Follow-up: - The patient has been stable and can now extend follow-up appointments to every two months. Plan: - Schedule a follow-up appointment in two months to assess the patient's mental health status and medication management. 04/17/2024 Opioid dependence, uncomplicated (ICD-10 - F11.20) 04/17/2024 Attention-deficit hyperactivity disorder, combined type (ICD-10 - F90.2) 05/20/2024 Opioid dependence, uncomplicated (ICD-10 - F11.20) 07/14/2024 Opioid dependence, uncomplicated (ICD-10 - F11.20) 08/06/2024 Bipolar disorder, unspecified (ICD-10 - F31.9) 08/06/2024 Opioid dependence, uncomplicated (ICD-10 - F11.20) 12/23/2023 Opioid dependence, uncomplicated (ICD-10 - F11.20) 05/07/2024 Bipolar disorder, unspecified (ICD-10 - F31.9) latuda 60mg daily 03/12/2024 Bipolar disorder, unspecified (ICD-10 - F31.9) latuda 60mg daily 02/09/2024 Opioid dependence, uncomplicated (ICD-10 - F11.20) 08/30/2023 Bipolar disorder, unspecified (ICD-10 - F31.9) 1. Insomnia: - Patient reports difficulty falling asleep and an active mind at night. - Possible causes include late Concerta administration or recent increase in physical activity. - Plan: Advise patient to take Concerta earlier in the day and monitor sleep quality. Follow up in one month to reassess sleep issues. 2. Mood stability: - Patient reports no current depression or anxiety symptoms. - Continues on Latuda 60 mg daily with food. - Plan: Continue current medication regimen and monitor mood stability. Follow up in one month. 3. Attention-Defici t/Hyperactivity Disorder (ADHD): - Patient is on Concerta for ADHD management. - Plan: Continue Concerta and adjust administration time to earlier in the day to address insomnia concerns. Follow up in one month. 4. Opioid use disorder: - Patient is stable on Suboxone. - Plan: Continue Suboxone as prescribed and monitor for any changes in opioid use or cravings. Follow up in one month. 5. Medication refills: - Concerta and Latuda prescriptions were sent to the pharmacy on the . - Patient does not need a Latuda refill yet. - Plan: Ensure patient receives Concerta refill in a timely manner. Follow up in one month for medication management and refills as needed. 08/30/2023 Attention-deficit hyperactivity disorder, combined type (ICD-10 - F90.2) 1. Insomnia: - Patient reports difficulty falling asleep and an active mind at night. - Possible causes include late Concerta administration or recent increase in physical activity. - Plan: Advise patient to take Concerta earlier in the day and monitor sleep quality. Follow up in one month to reassess sleep issues. 2. Mood stability: - Patient reports no current depression or anxiety symptoms. - Continues on Latuda 60 mg daily with food. - Plan: Continue current medication regimen and monitor mood stability. Follow up in one month. 3. Attention-Defici t/Hyperactivity Disorder (ADHD): - Patient is on Concerta for ADHD management. - Plan: Continue Concerta and adjust administration time to earlier in the day to address insomnia concerns. Follow up in one month. 4. Opioid use disorder: - Patient is stable on Suboxone. - Plan: Continue Suboxone as prescribed and monitor for any changes in opioid use or cravings. Follow up in one month. 5. Medication refills: - Concerta and Latuda prescriptions were sent to the pharmacy on the . - Patient does not need a Latuda refill yet. - Plan: Ensure patient receives Concerta refill in a timely manner. Follow up in one month for medication management and refills as needed. 03/12/2024 Attention-deficit hyperactivity disorder, combined type (ICD-10 - F90.2) Cont Concerta 72mg daily 05/07/2024 Encounter for screening for depression (ICD-10 - Z13.31) 05/20/2024 Bipolar disorder, unspecified (ICD-10 - F31.9) 10/27/2023 Attention-deficit hyperactivity disorder, combined type (ICD-10 - F90.2) Cont Concerta 72mg daily 1. Insomnia: - Patient reports difficulty falling asleep and an active mind at night. - Possible causes include late Concerta administration or recent increase in physical activity. - Plan: Advise patient to take Concerta earlier in the day and monitor sleep quality. Follow up in one month to reassess sleep issues. 2. Mood stability: - Patient reports no current depression or anxiety symptoms. - Continues on Latuda 60 mg daily with food. - Plan: Continue current medication regimen and monitor mood stability. Follow up in one month. 3. Attention-Defici t/Hyperactivity Disorder (ADHD): - Patient is on Concerta for ADHD management. - Plan: Continue Concerta and adjust administration time to earlier in the day to address insomnia concerns. Follow up in one month. 4. Opioid use disorder: - Patient is stable on Suboxone. - Plan: Continue Suboxone as prescribed and monitor for any changes in opioid use or cravings. Follow up in one month. 5. Medication refills: - Concerta and Latuda prescriptions were sent to the pharmacy on the . - Patient does not need a Latuda refill yet. - Plan: Ensure patient receives Concerta refill in a timely manner. Follow up in one month for medication management and refills as needed. 1. Stable mental health status: - Patient reports no current issues with depression or anxiety. Plan: - Continue current medications and monitor for any changes in mental health status. 2. Attention Deficit Hyperactivity Disorder (ADHD): - Patient is currently on Concerta 72 mg daily (two 36 mg tablets). There was a recent issue with the prescription, but it has been resolved, and the patient has an adequate supply. Plan: - Continue Concerta at the current dose and monitor for effectiveness and any side effects. 3. Opioid Use Disorder (in remission): - Patient is currently on Suboxone 8-2 mg daily and reports no issues. Plan: - Continue Suboxone at the current dose. - Refill prescription for one month. 4. Bipolar Disorder (stable): - Patient is currently on Latuda 60 mg daily and reports no issues. The patient has an adequate supply of medication. Plan: - Continue Latuda at the current dose and monitor for any changes in mood or behavior. Follow-up: - The patient has been stable and can now extend follow-up appointments to every two months. Plan: - Schedule a follow-up appointment in two months to assess the patient's mental health status and medication management. 10/27/2023 Generalized hyperhidrosis (ICD-10 - R61) 1. Insomnia: - Patient reports difficulty falling asleep and an active mind at night. - Possible causes include late Concerta administration or recent increase in physical activity. - Plan: Advise patient to take Concerta earlier in the day and monitor sleep quality. Follow up in one month to reassess sleep issues. 2. Mood stability: - Patient reports no current depression or anxiety symptoms. - Continues on Latuda 60 mg daily with food. - Plan: Continue current medication regimen and monitor mood stability. Follow up in one month. 3. Attention-Defici t/Hyperactivity Disorder (ADHD): - Patient is on Concerta for ADHD management. - Plan: Continue Concerta and adjust administration time to earlier in the day to address insomnia concerns. Follow up in one month. 4. Opioid use disorder: - Patient is stable on Suboxone. - Plan: Continue Suboxone as prescribed and monitor for any changes in opioid use or cravings. Follow up in one month. 5. Medication refills: - Concerta and Latuda prescriptions were sent to the pharmacy on the . - Patient does not need a Latuda refill yet. - Plan: Ensure patient receives Concerta refill in a timely manner. Follow up in one month for medication management and refills as needed. 1. Stable mental health status: - Patient reports no current issues with depression or anxiety. Plan: - Continue current medications and monitor for any changes in mental health status. 2. Attention Deficit Hyperactivity Disorder (ADHD): - Patient is currently on Concerta 72 mg daily (two 36 mg tablets). There was a recent issue with the prescription, but it has been resolved, and the patient has an adequate supply. Plan: - Continue Concerta at the current dose and monitor for effectiveness and any side effects. 3. Opioid Use Disorder (in remission): - Patient is currently on Suboxone 8-2 mg daily and reports no issues. Plan: - Continue Suboxone at the current dose. - Refill prescription for one month. 4. Bipolar Disorder (stable): - Patient is currently on Latuda 60 mg daily and reports no issues. The patient has an adequate supply of medication. Plan: - Continue Latuda at the current dose and monitor for any changes in mood or behavior. Follow-up: - The patient has been stable and can now extend follow-up appointments to every two months. Plan: - Schedule a follow-up appointment in two months to assess the patient's mental health status and medication management. 05/07/2024 Encounter for screening for cardiovascular disorders (ICD-10 - Z13.6) 03/12/2024 Generalized hyperhidrosis (ICD-10 - R61) 08/30/2023 Generalized hyperhidrosis (ICD-10 - R61) 1. Insomnia: - Patient reports difficulty falling asleep and an active mind at night. - Possible causes include late Concerta administration or recent increase in physical activity. - Plan: Advise patient to take Concerta earlier in the day and monitor sleep quality. Follow up in one month to reassess sleep issues. 2. Mood stability: - Patient reports no current depression or anxiety symptoms. - Continues on Latuda 60 mg daily with food. - Plan: Continue current medication regimen and monitor mood stability. Follow up in one month. 3. Attention-Defici t/Hyperactivity Disorder (ADHD): - Patient is on Concerta for ADHD management. - Plan: Continue Concerta and adjust administration time to earlier in the day to address insomnia concerns. Follow up in one month. 4. Opioid use disorder: - Patient is stable on Suboxone. - Plan: Continue Suboxone as prescribed and monitor for any changes in opioid use or cravings. Follow up in one month. 5. Medication refills: - Concerta and Latuda prescriptions were sent to the pharmacy on the 8th. - Patient does not need a Latuda refill yet. - Plan: Ensure patient receives Concerta refill in a timely manner. Follow up in one month for medication management and refills as needed. 08/30/2023 Opioid dependence, uncomplicated (ICD-10 - F11.20) 1. Insomnia: - Patient reports difficulty falling asleep and an active mind at night. - Possible causes include late Concerta administration or recent increase in physical activity. - Plan: Advise patient to take Concerta earlier in the day and monitor sleep quality. Follow up in one month to reassess sleep issues. 2. Mood stability: - Patient reports no current depression or anxiety symptoms. - Continues on Latuda 60 mg daily with food. - Plan: Continue current medication regimen and monitor mood stability. Follow up in one month. 3. Attention-Defici t/Hyperactivity Disorder (ADHD): - Patient is on Concerta for ADHD management. - Plan: Continue Concerta and adjust administration time to earlier in the day to address insomnia concerns. Follow up in one month. 4. Opioid use disorder: - Patient is stable on Suboxone. - Plan: Continue Suboxone as prescribed and monitor for any changes in opioid use or cravings. Follow up in one month. 5. Medication refills: - Concerta and Latuda prescriptions were sent to the pharmacy on the 8th. - Patient does not need a Latuda refill yet. - Plan: Ensure patient receives Concerta refill in a timely manner. Follow up in one month for medication management and refills as needed. 03/12/2024 Opioid dependence, uncomplicated (ICD-10 - F11.20) 05/07/2024 Dietary counseling and surveillance (ICD-10 - Z71.3) 10/27/2023 Opioid dependence, uncomplicated (ICD-10 - F11.20) 1. Insomnia: - Patient reports difficulty falling asleep and an active mind at night. - Possible causes include late Concerta administration or recent increase in physical activity. - Plan: Advise patient to take Concerta earlier in the day and monitor sleep quality. Follow up in one month to reassess sleep issues. 2. Mood stability: - Patient reports no current depression or anxiety symptoms. - Continues on Latuda 60 mg daily with food. - Plan: Continue current medication regimen and monitor mood stability. Follow up in one month. 3. Attention-Defici t/Hyperactivity Disorder (ADHD): - Patient is on Concerta for ADHD management. - Plan: Continue Concerta and adjust administration time to earlier in the day to address insomnia concerns. Follow up in one month. 4. Opioid use disorder: - Patient is stable on Suboxone. - Plan: Continue Suboxone as prescribed and monitor for any changes in opioid use or cravings. Follow up in one month. 5. Medication refills: - Concerta and Latuda prescriptions were sent to the pharmacy on the . - Patient does not need a Latuda refill yet. - Plan: Ensure patient receives Concerta refill in a timely manner. Follow up in one month for medication management and refills as needed. 1. Stable mental health status: - Patient reports no current issues with depression or anxiety. Plan: - Continue current medications and monitor for any changes in mental health status. 2. Attention Deficit Hyperactivity Disorder (ADHD): - Patient is currently on Concerta 72 mg daily (two 36 mg tablets). There was a recent issue with the prescription, but it has been resolved, and the patient has an adequate supply. Plan: - Continue Concerta at the current dose and monitor for effectiveness and any side effects. 3. Opioid Use Disorder (in remission): - Patient is currently on Suboxone 8-2 mg daily and reports no issues. Plan: - Continue Suboxone at the current dose. - Refill prescription for one month. 4. Bipolar Disorder (stable): - Patient is currently on Latuda 60 mg daily and reports no issues. The patient has an adequate supply of medication. Plan: - Continue Latuda at the current dose and monitor for any changes in mood or behavior. Follow-up: - The patient has been stable and can now extend follow-up appointments to every two months. Plan: - Schedule a follow-up appointment in two months to assess the patient's mental health status and medication management. 05/07/2024 Attention-deficit hyperactivity disorder, combined type (ICD-10 - F90.2) Cont Concerta 72mg daily 05/07/2024 Generalized hyperhidrosis (ICD-10 - R61) 05/07/2024 Opioid dependence, uncomplicated (ICD-10 - F11.20) 03/12/2024 Other 1. Opioid Dependence on Medication Therapy: - Patient is stable on Suboxone (buprenorphine/na loxone 8 mg/2 mg) and reports no issues. Plan: - Continue Suboxone 8 mg/2 mg, one tablet daily. - Schedule follow-up appointment in 2 months. - Perform urine drug screen. 2. ADHD: - Patient has been out of Concerta (methylphenidate) for a couple of months and reports worsening ADHD symptoms. Plan: - Refill Concerta 72 mg daily. - Monitor for improvement in ADHD symptoms. 3. Bipolar Disorder: - Patient is stable on Latuda (lurasidone) 60 mg daily with food and reports no significant mood fluctuations. Plan: - Continue Latuda 60 mg daily with food. - Monitor mood stability and adjust medication as needed. 4. Situational Depression and Family Issues: - Patient reports situational depression related to family issues, particularly with her oldest daughter. Plan: - Refer patient to therapy for support and coping strategies. - Schedule therapy appointment through the clinic or patient's insurance. - Monitor patient's mental health and adjust treatment as needed. 05/07/2024 Other 1. Family Conflict: - Patient reports significant family conflict with her 21-year-old daughter who has cut off contact with the family. - Daughter quit school, refuses communication, and declines healthcare coverage from family. - Daughter cites childhood trauma and describes family household as toxic. - Situation has caused emotional distress for the patient, progressing from nightly crying to anger. Plan: - Continue to monitor patient's emotional state related to family conflict. - Encourage patient to seek support through therapy or support groups if needed. 2. Attention Deficit Hyperactivity Disorder (ADHD): - Patient is currently managed on methylphenidate (generic Concerta) for ADHD. - Medication appears effective, but there are supply issues causing frequent backorders. Plan: - Continue current methylphenidate regimen. - Monitor availability of methylphenidate and consider alternative ADHD medications if supply issues persist. - Patient to notify when refill is needed, as electronic prescribing system does not show methylphenidate as an option. 3. Bipolar Disorder: - Patient reports good response to current medication regimen, which includes Latuda. Plan: - Continue current Latuda regimen. 4. Opioid Use Disorder: - Patient is maintained on Suboxone for opioid use disorder. - Current supply is adequate with approximately 14 doses remaining. Plan: - Continue current Suboxone regimen. - Patient to notify when refill is needed. Plan Of Treatment Next Appt Details Provider Name:Farhan mcdonald, 08/20/2024 11:45:00 AM, [address], [address], [place], [address], Insurance Providers Payer Name Payer Address Payer Phone Subscriber Number Group Number Insured Name Patient Relationship to Insured Coverage Start Date Coverage End Date [facility] [address] [place] [phone] [id number] [employer] Spouse - patient is the spouse of the insured Medical (General) History Medical History History ICD Code Problems: Attention deficit hyperactivit y disorder, combined type Bipolar disorder Hyperhidrosis Long-term drug therapy Opioid dependence Urine test negative , Surgical History Surgery Date(Month/Year) Other 07/22/1994
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
--- OUTSIDE RECORDS SUMMARY | 2024-08-10 07:22 | XMS_ITS ---
Author Organization [facility] [employer] [facility] Address [address] [place] [address] [address] Care Team Providers Care Associate Biological Sales Name Role Phone Lopez, Farhan Unavailable [phone] REASON FOR VISIT 2 month fu Social History Sex Assigned At : Social History Observation Description Sex Assigned At Female Encounters Encounter Location Date Provider Diagnosis [facility] [employer] [place] [id number] [facility] [address] [address] 07/02/2024 Farhan Lopez Plan Of Treatment Next Appt Details Provider Name:Farhan mcdonald, 08/20/2024 11:45:00 AM, [address], [place] [address], [place], [address], Progress Notes * CHELSEA CARREON ADOB: [birth year] (44 yo F)Acc No.[id number]:07/02/2024 Patient: CHELSEA ZUNIGA Harry Provider: MELISSA CRANDALL :1980 A ge:44 Y S ex:Female Date:07/02/2024 Address:[facility] [address] [facility] Subjective: * Chief Complaints: * 1 . 2 month fu. * Medical History: Objective: * Vitals: Assessment: Plan: * Treatment: * Billing Information: * Visit Code: * Procedure Codes: * Electronic signature of MELISSA Jo on 08/10/2024 at 07:21 AM CDT Sign off status: Pending * Provider: MELISSA CRANDALL Date: 0 07/02/2024 Generated for Mitzi Gray on: 0 08/10/2024 07:21 AM CDT
[2024-08-10] MEDS: SODIUM CHLORIDE 0.9% IV 1,000 ML 999 ML IV CONT (08:11)
[2024-08-10] MEDS: cefTRIAXone 2 GM/NS 100 ML 2 GM/100 ML BAG IVPB (08:12)
[2024-08-10] MEDS: MORPHINE SULFATE (*CRX) 2 MG/ML INJ IV PUSH (08:27)
[2024-08-10] MEDS: HYDROmorphone HCL INJ (*CRX) 2 MG/ML VIAL 1 MG IV PUSH ×3 (09:54→20:48)
--- NOTE | 2024-08-10 10:00 | P.CONGS_ITS ---
Assessment and Plan Assessment and plan (1) Bowel obstruction: Code(s): K56.609 - Unspecified intestinal obstruction, unspecified as to partial versus complete obstruction Status: Acute Assessment and Plan: Patient presented to the ED today with lower abdominal pain, N/V, and constipation that started yesterday. 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 CT scan suspicious for colonic adenocarcinoma with early or partial large bowel obstruction. Colitis also to be considered a potential diagnosis. WBC 18.1. * Clear liquid diet OK, as there is no CT evidence of small bowel obstruction. * IV Zosyn to cover for GI bugs, as WBC is 18.1. * Continuous IV fluids. * Monitor labs daily. * Continue with treatment pending GI recs. (2) Colon abnormality: Code(s): K63.9 - Disease of intestine, unspecified Status: Acute Assessment and Plan: CT suspicious for colonic adenocarcinoma. Family history of pancreatic and ovarian cancer. CHEK2+. GI consulted and planning for colonoscopy in the next few days. Continue treatment based on scope findings and GI recommendations. Plan Discussed patient's case and plan of care with Dr. Salvador. History of Present Illness Consult details Consult date: 08/10/24 Narrative: Patient is a 44 year old female with history of interstitial cystitis and opioid abuse (on suboxone) who presented to the ED with lower abdominal pain who we have been asked to see in surgical consultation for a bowel obstruction. Patient's pain started abruptly in her RLQ yesterday afternoon. She initially thought that this was constipation and took dulcolax with no relief. Patient had nausea and vomiting throughout the night and into this morning. She also noted that she was having bladder pain and burning with urination, for which she took Macrobid for. She states that this did provide some relief. Patient started taking semaglutide roughly 3 weeks ago and states that she often gets some constipation after injections, but never this severe. She states that she last had a formed stool roughly 2-3 weeks ago, and since then it has just been very small amounts or loose stool. She last had a colonoscopy 5 years that was completely benign. She has family history of pancreatic cancer in her father and ovarian cancer in her mother. 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 No history of diverticulitis, ulcerative colitis, or Crohns disease. In ED, WBC 18.1. CT demonstrated evidence of circumferential wall thickening of the distal sigmoid colon, with prominent stool upstream from this area, suspicious for colonic adenocarcinoma with early or partial large bowel obstruction. Infectious/inflammatory colitis would be a potential alternative consideration. Nausea/vomiting has remitted, but pain is still prominent. Meds Home Medications and Allergies Home Medications ?Medication ?Instructions ?Recorded ?Confirmed ?Type buprenorphine 8 mg-naloxone 2 mg 1 tablet sublingual DAILY 06/10/23 06/10/23 History sublingual tablet Allergies Allergy/AdvReac Type Severity Reaction Status Date / Time Sulfa (Sulfonamide Allergy Rash Verified 06/10/23 16:20 Antibiotics) Vital Signs Vital Signs - 24 hr 08/10/24 06:34 Temperature 99 F Pulse Rate 79 Respiratory Rate 11 L Blood Pressure 129/94 H Pulse Oximetry 97 Oxygen Delivery Room Air Exam 2 Const: General: uncomfortable Other: patient having significant lower abdominal pain HENMT: Mouth: Yes moist mucous membranes Eyes: General: appearance normal, both eyes and all related structures Neck: Neck: supple Resp: Effort & Inspection: normal respiratory effort Cardio: Rate: regular rate GI: GI Palp: Yes Soft to palpation, Yes Tenderness to palpation present (GI) (tenderness to palpation of RLQ) and No Guarding due to palpation present (GI) Auscultation: normal bowel sounds : General: Yes bladder normal to palpation Skin: General skin exam: normal color and no rashes or lesions noted Neuro: Speech: normal speech Extrem: General: normal to inspection Psych: Mental Status: mental status grossly normal Results Labs 08/10/24 06:45 08/10/24 06:45 Labs: Abnormal lab results 08/10/24 Range/Units 06:45 WBC 18.1 H (4.5-10.0) K/mm3 RBC 4.08 L (4.2-5.4) M/mm3 MCV 102.0 H (80-100) fl Plt Count 417 H (150-375) k/mm3 Neut % (Auto) 83.6 H (45.5-73.1) % Lymph % (Auto) 10.5 L (18.3-44.2) % [place] # (Auto) 0.9 H (0.1-0.6) K/mm3 Abs Immat Gran (auto) 0.07 H (0.00-0.031) K/mm3 Absolute Neuts (auto) 15.2 H (1.3-6.7) K/mm3 Glucose 114 H (65-110) mg/dL Urine Appearance Cloudy H (Clear) Urine Ketones 2+ H (Negative) mg/dL Urine Bilirubin 1+ H (Negative) Leukocyte Esterase Rfl 1+ H (Negative) MEENU/UL Urine RBC 3-5 H (0-2) /hpf Urine WBC 11-20 H (0-3) /hpf Ur Squamous Epith Cells Many H (Few) /hpf Diabetes panel 08/10/24 Range/Units 06:45 Sodium 138 (137-145) mmol/L Potassium 4.0 (3.4-5.0) mmol/L Chloride 102 (98-107) mmol/L Carbon Dioxide 28 (22-30) mmol/L BUN 10 (7-17) mg/dL Creatinine 0.83 (0.7-1.0) mg/dL Glucose 114 H (65-110) mg/dL Calcium 9.5 (8.4-10.2) mg/dL AST 28 (14-36) U/L ALT 17 (6-35) U/L Alkaline Phosphatase 51 (38-126) U/L Total Protein 7.7 (6.3-8.2) g/dL Albumin 4.4 (3.5-5.1) g/dL Calcium panel 08/10/24 Range/Units 06:45 Calcium 9.5 (8.4-10.2) mg/dL Albumin 4.4 (3.5-5.1) g/dL Pituitary panel 08/10/24 Range/Units 06:45 Sodium 138 (137-145) mmol/L Potassium 4.0 (3.4-5.0) mmol/L Chloride 102 (98-107) mmol/L Carbon Dioxide 28 (22-30) mmol/L BUN 10 (7-17) mg/dL Creatinine 0.83 (0.7-1.0) mg/dL Glucose 114 H (65-110) mg/dL Calcium 9.5 (8.4-10.2) mg/dL Adrenal panel 08/10/24 Range/Units 06:45 Sodium 138 (137-145) mmol/L Potassium 4.0 (3.4-5.0) mmol/L Chloride 102 (98-107) mmol/L Carbon Dioxide 28 (22-30) mmol/L BUN 10 (7-17) mg/dL Creatinine 0.83 (0.7-1.0) mg/dL Glucose 114 H (65-110) mg/dL Calcium 9.5 (8.4-10.2) mg/dL Total Bilirubin 0.5 (0.2-1.3) mg/dL AST 28 (14-36) U/L ALT 17 (6-35) U/L Alkaline Phosphatase 51 (38-126) U/L Total Protein 7.7 (6.3-8.2) g/dL Albumin 4.4 (3.5-5.1) g/dL All other labs normal. Imaging Abdomen CT scan report/results: report reviewed
[2024-08-10 10:04] VITALS: BP 122/88; PULSE 90; RESP 18; O2SAT 100
--- NOTE | 2024-08-10 12:50 | ADMGEN ---
This patient, Bharti Olivo, was admitted to [facility] Surg Room 329-01. Patient/family oriented to hospital policies and general routines including ID bracelet, bed and alarms, visiting hours, pain management, procedures, bathroom and other care routines, personal items, smoking policy, room service/diet, and visiting hours. Information on how to activate the Rapid Response Team has been discussed. Patient/Family are encouraged to report perceived risks to care and to ask questions if they do not understand what they are told or what they should do.
--- NOTE | 2024-08-10 13:05 | PM.IMHP ---
H&P: HPI History of Present Illness Date/Time: 08/10/24 13:05 Chief Complaint: Abdominal pain Narrative: Patient is a 44-year-old female with a past medical history of ADHD, bipolar, Suboxone use visited ED due to abdominal pain. Patient is originally from [place] but later moved to [place] and currently lives in [place]. 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 Patient mother had ovarian cancer and father had pancreatic cancer and she underwent genetic counseling and she was positive for CHECK 2 gene. She was advised to have yearly colonoscopy. Patient had a colonoscopy 5 years ago which was normal. And she was also advised to undergo mammogram and MRI of the breast every 6 months. Her last mammogram was 3 years ago which was normal. Patient reports that she had recently started compound; type injection 3 weeks ago. After starting the semaglutide patient experienced severe constipation and she was not able to remember when she had the last good bowel movement. Pertinent ED labs: WBC 18.1, hemoglobin 13.5, hematocrit 41.6, platelet to 417, sodium 138, potassium 4, chloride 102, creatinine 0.8, GFR greater than 60. UA Positive for leukocyte esterase and WBC 11-20 Abdomen/pelvis CT shows:Circumferential wall thickening of the distal sigmoid colon, with prominent stool upstream from this area, suspicious for colonic adenocarcinoma with early or partial large bowel obstruction. Infectious/inflammatory colitis would be a potential alternative consideration.Prominent appearance of the cervix, nonspecific. Transvaginal ultrasound :No definite evidence for torsion.Small amount of free fluid.Heterogeneous myometrium without discrete focal mass. Patient is admitted in the setting of possible colitis vs urosepsis vs suspicious colonic adeno carcinoma vs partial large bowel obstruction. Her possible bowel obstruction could been aggravated by semaglutide and Suboxone. Currently will hold Suboxone and continue high-dose opiates for abdominal pain and restart the Suboxone within 7 days possibly on Tuesday after having the colonoscopy. Will repeat the urine and check for buprenorphine before starting Suboxone. Surgery evaluated the patient and started on clear liquid diet. Patient will possibly undergo colonoscopy Tuesday to rule out colonic adenocarcinoma. The Review of Systems Review of Systems: All systems reviewed & are unremarkable except as noted in HPI and below PMFSH Social History Social History Years smoked: 2 Smoking status: Former smoker Tobacco type: cigarettes Smoking end date: 07/22/24 Alcohol intake: current Drinks per week: 2 Do You Feel Safe in your Home?: Yes Lack of Transportation: No Lack of Food: Never True Current Housing: I Have Housing Concerned About Future Housing: No Difficulty Paying Gas/Electric Bills: No Difficulty Paying for Meds: No Currently Unemployed: No Education: Decline to Answer Difficulty w/ Childcare or Family Care: No Spiritual care concerns: No Meds Home Medications and Allergies Home Medications ?Medication ?Instructions ?Recorded ?Confirmed ?Type buprenorphine 8 mg-naloxone 2 mg 1 tablet sublingual DAILY 06/10/23 08/10/24 History sublingual tablet lurasidone 60 mg tablet 60 mg PO DAILY 08/10/24 08/10/24 History methylphenidate HCl 36 mg 36 mg PO .Q12 08/10/24 08/10/24 History tablet,extended release 24 hr Allergies Allergy/AdvReac Type Severity Reaction Status Date / Time Sulfa (Sulfonamide Allergy Rash Verified 08/10/24 15:56 Antibiotics) Vital Signs Vital Signs - 24 hr 08/10/24 06:34 08/10/24 10:04 Temperature 99 F Pulse Rate 79 90 Respiratory Rate 11 L 18 Blood Pressure 129/94 H 122/88 Pulse Oximetry 97 100 Oxygen Delivery Room Air Exam Narrative: EXAMINATION OF ORGAN SYSTEMS/BODY AREAS: Constitutional: Vital signs per nursing GENERAL: Appears quite comfortable in the bed HEAD: Normal with no signs of head trauma. EYES: EOMI, conjunctiva normal ENT: Hearing grossly intact LUNGS: Nonlabored breathing. HEART: [Regular rate and rhythm] ABD: [Soft], some tenderness to palpation right lower quadrant EXT: Normal range of motion SKIN: [No rashes or lesions.] NEURO: [Alert and oriented x 3. No gross focal sensory or strength deficits.] PSYCH: Normal affect Const: General: uncomfortable Other: patient having significant lower abdominal pain HENMT: Mouth: Yes moist mucous membranes Eyes: General: appearance normal, both eyes and all related structures Neck: Neck: supple Resp: Effort & Inspection: normal respiratory effort Cardio: Rate: regular rate GI: Auscultation: normal bowel sounds : General: Yes bladder normal to palpation Bimanual exam- vagina & uterus: bladder normal to palpation Skin: General skin exam: normal color and no rashes or lesions noted Neuro: Speech: normal speech Extrem: General: normal to inspection Psych: Mental Status: mental status grossly normal H&P: Results Labs Labs: Short CBC 08/10/24 Range/Units 06:45 WBC 18.1 H (4.5-10.0) K/mm3 Hgb 13.5 (12.0-15.0) g/dL Hct 41.6 (37.0-47.0) % Plt Count 417 H (150-375) k/mm3 BMP 08/10/24 06:45 Sodium 138 Potassium 4.0 Chloride 102 Carbon Dioxide 28 BUN 10 Creatinine 0.83 Glucose 114 H Calcium 9.5 Liver Function 08/10/24 Range/Units 06:45 Total Bilirubin 0.5 (0.2-1.3) mg/dL AST 28 (14-36) U/L ALT 17 (6-35) U/L Alkaline Phosphatase 51 (38-126) U/L Albumin 4.4 (3.5-5.1) g/dL Urine 08/10/24 Range/Units 06:45 Urine Color Dark yellow (Yellow) Urine Appearance Cloudy H (Clear) Urine pH 5.5 (5.0-9.0) Ur Specific [place] 1.027 (1.001-1.035) Urine Protein Trace (Negative) mg/dL Urine Glucose (UA) Negative (Negative) mg/dL Assessment and Plan Assessment and plan (1) Bowel obstruction: Code(s): K56.609 - Unspecified intestinal obstruction, unspecified as to partial versus complete obstruction Status: Acute (2) Colonic mass: Code(s): K63.89 - Other specified diseases of intestine Status: Acute (3) Large bowel obstruction: Code(s): K56.609 - Unspecified intestinal obstruction, unspecified as to partial versus complete obstruction Status: Acute (4) Colon abnormality: Code(s): K63.9 - Disease of intestine, unspecified Status: Acute Plan Large Bowel Obstruction vs Suspicious Colonic adeno carcinoma vs Colitis Started on clear liquid by surgery Possible aggravating factor: Suboxone and semaglutide Consider NG tube if necessary Monitor electrolytes Will consider TPN if necessary, on PRN pain control Gen surgery following GI following Bentyl for abdominal cramping Zofran for nausea Protonix for GI Protection On Zosyn Possible colonoscopy Tuesday Suboxone use Hold Suboxone due to bowel obstruction Hold semaglutide Higher dose of opiates due to Suboxone use Continuing Suboxone and opiates will aggravate to bowel obstruction so holding Suboxone Will restart Suboxone after checking buprenorphine in urine Goal to start Suboxone within 7 days of last does UTI Continue Zosyn DVT prophylaxis: Lovenox 40 mg subQ Hospitalist MIPS Advance Care Plan I have confirmed that the patient's Advanced Care Plan is present, code status is documented, or surrogate decision maker is listed in patient medical record.: Yes Medication Reconciliation I have utilized all available resources to obtain, update and review the patients current medications (includes all prescriptions, OTC, herbals, cannabis, and nutritional supplements).: Yes
[2024-08-10] MEDS: DEXTROSE 5%/LACTATED RINGERS 1,000 ML 75 ML IV CONT (13:23)
[2024-08-10] MEDS: PIPERACILLN/TAZ 3.375GM/NS50ML 3.375 GM/50 ML BAG IVPB ×2 (13:24→17:20)
[2024-08-10 14:00] VITALS: BP 108/83; PULSE 83; RESP 16; TEMP 37.1; O2SAT 100
[2024-08-10] MEDS: DICYCLOMINE HCL 10 MG CAPSULE 20 MG PO (16:43)
[2024-08-10] MEDS: PANTOPRAZOLE SODIUM IV 40 MG VIAL IV PUSH (20:47)
[2024-08-10] MEDS: methocarbamoL 500 MG TABLET PO (20:48)
[2024-08-10 21:35] VITALS: BP 109/67; PULSE 80; RESP 16; TEMP 36.1; O2SAT 97
[2024-08-11] MEDS: PIPERACILLN/TAZ 3.375GM/NS50ML 3.375 GM/50 ML BAG IVPB ×4 (00:42→16:53)
[2024-08-11] MEDS: DEXTROSE 5%/LACTATED RINGERS 1,000 ML 75 ML IV CONT (03:43)
[2024-08-11 05:57] VITALS: BP 109/62; PULSE 70; RESP 20; TEMP 36.1; O2SAT 100
[2024-08-11 07:10] LABS: Basophils Absolute Auto 0.1 K/mm3 (0.0-0.1); Basophils Percent Auto 0.6 % (0.2-1.2); Eosinophils Absolute Auto 0.1 K/mm3 (0-0.3); Eosinophils Percent Auto 1.3 % (0-4.4); Hematocrit 35.9 % (37.0-47.0); Hemoglobin 11.5 g/dL (12.0-15.0); Immature Granulocyte Absolute 0.04 K/mm3 (0.00-0.031); Immature Granulocyte Percent A 0.4 % (0-0.5); Lymphocytes Absolute Auto 1.37 K/mm3 (0.9-3.2); Lymphocytes Percent Auto 15.1 % (18.3-44.2); Mean Corpuscular Hemoglobin 32.5 pg (26-34); Mean Corpuscular Volume 101.4 fl (80-100); Mean Platelet Volume 10.3 fl (7.4-10.4); Monocytes Absolute Auto 0.7 K/mm3 (0.1-0.6); Monocytes Percent Auto 7.7 % (2.6-8.5); Neutrophils Absolute Auto 6.8 K/mm3 (1.3-6.7); Neutrophils Percent Auto 74.9 % (45.5-73.1); Platelet Count Result 307 k/mm3 (150-375); Red Blood Count 3.54 M/mm3 (4.2-5.4); Red Cell Distribution Width 13.4 % (11.5-14.5); White Blood Count 9.1 K/mm3 (4.5-10.0)
[2024-08-11 07:25] LABS: INR 1.1; Prothrombin Time 14.6 Seconds (11.1-14.7)
[2024-08-11 07:35] LABS: Alanine Aminotransferase 25 U/L (6-35); Albumin Level 3.5 g/dL (3.5-5.1); Alkaline Phosphatase 47 U/L (38-126); Anion Gap 6 mmol/L (4-12); Aspartate Amino Transferase 35 U/L (14-36); Bilirubin,Total 0.5 mg/dL (0.2-1.3); Blood Urea Nitrogen 6 mg/dL (7-17); Calcium 8.7 mg/dL (8.4-10.2); Carbon Dioxide 26 mmol/L (22-30); Chloride 106 mmol/L (98-107); Estimated CRCL calculation 86 ml/min; Estimated Glomerular Filt Rate > 60; Glucose 96 mg/dL (65-110); Potassium 3.7 mmol/L (3.4-5.0); Sodium 138 mmol/L (137-145); Total Protein 6.2 g/dL (6.3-8.2)
--- NOTE | 2024-08-11 08:48 | P.PNIM_ITS ---
Progress Note: A&P Assessment and Plan (1) Bowel obstruction: Code(s): K56.609 - Unspecified intestinal obstruction, unspecified as to partial versus complete obstruction Status: Acute (2) Colonic mass: Code(s): K63.89 - Other specified diseases of intestine Status: Acute (3) Large bowel obstruction: Code(s): K56.609 - Unspecified intestinal obstruction, unspecified as to partial versus complete obstruction Status: Acute (4) Colon abnormality: Code(s): K63.9 - Disease of intestine, unspecified Status: Acute Plan Large Bowel Obstruction vs Suspicious Colonic adeno carcinoma vs Colitis Started on clear liquid by surgery Possible aggravating factor: Suboxone and semaglutide Consider NG tube if necessary Monitor electrolytes Will consider TPN if necessary, on PRN pain control Gen surgery following GI following Bentyl for abdominal cramping Zofran for nausea Protonix for GI Protection On Zosyn Possible colonoscopy Tuesday Suboxone use Hold Suboxone due to bowel obstruction Hold semaglutide Higher dose of opiates due to Suboxone use Continuing Suboxone and opiates will aggravate to bowel obstruction so holding Suboxone Will restart Suboxone after checking buprenorphine in urine Goal to start Suboxone within 7 days of last does UTI Continue Zosyn DVT prophylaxis: Lovenox 40 mg subQ Subjective Date/time seen: 08/11/24 08:48 Interval history: Abdominal pain is better compared to yesterday. Started on simethicone and MiraLax. Pending GI evaluation. Possible colonoscopy Tuesday Review of Systems Review of Systems: All systems reviewed & are unremarkable except as noted in HPI and below Exam Narrative: EXAMINATION OF ORGAN SYSTEMS/BODY AREAS: Constitutional: Vital signs per nursing GENERAL: Appears quite comfortable in the bed HEAD: Normal with no signs of head trauma. EYES: EOMI, conjunctiva normal ENT: Hearing grossly intact LUNGS: Nonlabored breathing. HEART: [Regular rate and rhythm] ABD: [Soft], some tenderness to palpation right lower quadrant EXT: Normal range of motion SKIN: [No rashes or lesions.] NEURO: [Alert and oriented x 3. No gross focal sensory or strength deficits.] PSYCH: Normal affect Const: General: uncomfortable Other: patient having significant lower abdominal pain HENMT: Mouth: Yes moist mucous membranes Eyes: General: appearance normal, both eyes and all related structures Neck: Neck: supple Resp: Effort & Inspection: normal respiratory effort Cardio: Rate: regular rate GI: Auscultation: normal bowel sounds : General: Yes bladder normal to palpation Bimanual exam- vagina & uterus: bladder normal to palpation Skin: General skin exam: normal color and no rashes or lesions noted Neuro: Speech: normal speech Extrem: General: normal to inspection Psych: Mental Status: mental status grossly normal Objective Data Vital Signs Vital Signs: Vital Signs - 24 hr 08/10/24 10:04 08/10/24 14:00 08/10/24 20:00 Temperature 98.8 F Pulse Rate 90 83 Respiratory Rate 18 16 Blood Pressure 122/88 108/83 Pulse Oximetry 100 100 Oxygen Delivery Room Air 08/10/24 21:35 08/11/24 05:57 Temperature 96.9 F L 96.9 F L Pulse Rate 80 70 Respiratory Rate 16 20 Blood Pressure 109/67 109/62 Pulse Oximetry 97 100 Oxygen Delivery Intake/Output Intake/Output: Intake & Output 08/08/24 08/09/24 08/10/24 08/11/24 23:59 23:59 23:59 23:59 Intake Total 1270 1050 Balance 1270 1050 Meds/Results Medications: Active Medications Generic Name Dose Route Start Last Admin Trade Name Freq PRN Reason Stop Dose Admin Dicyclomine HCl 20 mg 08/10/24 16:09 08/10/24 16:43 Dicyclomine Hcl 10 Mg Capsule PO 20 mg QID PRN Administration Abdominal Cramping Hydromorphone HCl 1 mg 08/10/24 09:41 08/10/24 20:48 Hydromorphone Hcl Inj (*Crx) 2 Mg/Ml Vial IV PUSH 1 mg Q4H PRN Administration Pain Rated 7-10 or breakthroug Piperacillin/Tazobactam/Dextrose 3.375 gm in 50 mls @ 100 mls/hr 08/10/24 18:00 08/11/24 06:06 Zosyn 3.375 Gm/Ns 50 Ml IVPB 100 mls/hr Q6HR DEVI Administration Dextrose/Lactated Ringer's 1,000 mls @ 75 mls/hr 08/10/24 10:40 08/11/24 03:43 Dextrose 5%/Lactated Ringers IV CONT 75 mls/hr .[id number] DEVI Administration Methocarbamol 500 mg 08/10/24 21:00 08/10/24 20:48 Methocarbamol 500 Mg Tablet PO 500 mg QID DEVI Administration Morphine Sulfate 4 mg 08/10/24 17:14 Morphine Sulfate (*Crx) 4 Mg/Ml Inj IV PUSH Q3H PRN Pain Rated 4-6 Nonformulary Drug ( 1 mg 08/11/24 09:00 Lurasidone 40 Mg) PO 09/10/24 08:59 DAILY DEVI Nonformulary Drug ( 1 mg 08/11/24 09:00 Lurasidone 20 Mg) PO 09/10/24 08:59 DAILY DEVI Ondansetron HCl 4 mg 08/10/24 09:41 Ondansetron Inj 4 Mg/2 Ml Vial IV PUSH Q4H PRN Nausea Pantoprazole Sodium 40 mg 08/10/24 21:00 08/10/24 20:47 Pantoprazole Sodium Iv 40 Mg Vial IV PUSH 40 mg Q12HR DEVI Administration Radiology Results: ITS Impressions Abdomen/Pelvis CT 08/10/24 07:50 Impression: Circumferential wall thickening of the distal sigmoid colon, with prominent stool upstream from this area, suspicious for colonic adenocarcinoma with early or partial large bowel obstruction. Infectious/inflammatory colitis would be a potential alternative consideration. Prominent appearance of the cervix, nonspecific. Transvaginal US 08/10/24 08:24 Impression: No definite evidence for torsion. Small amount of free fluid. Heterogeneous myometrium without discrete focal mass. Labs Labs: Laboratory Results - last 24 hr 08/11/24 06:36 WBC 9.1 RBC 3.54 L Hgb 11.5 L Hct 35.9 L MCV 101.4 H MCH 32.5 MCHC 32.0 RDW 13.4 Plt Count 307 MPV 10.3 Immature Gran % (Auto) 0.4 Neut % (Auto) 74.9 H Lymph % (Auto) 15.1 L [place] % (Auto) 7.7 Eos % (Auto) 1.3 Baso % (Auto) 0.6 Lymph # (Auto) 1.37 [place] # (Auto) 0.7 H Eos # (Auto) 0.1 Baso # (Auto) 0.1 Abs Immat Gran (auto) 0.04 H Absolute Neuts (auto) 6.8 H Absolute Nucleated RBC 0.000 Nucleated RBC % 0.0 PT 14.6 INR 1.1 Sodium 138 Potassium 3.7 Chloride 106 Carbon Dioxide 26 Anion Gap 6 BUN 6 L Creatinine 0.79 Estim Creat Clear Calc 86 Estimated GFR > 60 Glucose 96 Calcium 8.7 Total Bilirubin 0.5 AST 35 ALT 25 Alkaline Phosphatase 47 Total Protein 6.2 L Albumin 3.5 Blood Type A Positive Antibody Screen Negative Hospitalist MIPS Advance Care Plan I have confirmed that the patient's Advanced Care Plan is present, code status is documented, or surrogate decision maker is listed in patient medical record.: Yes Medication Reconciliation I have utilized all available resources to obtain, update and review the patients current medications (includes all prescriptions, OTC, herbals, cannabis, and nutritional supplements).: Yes
[2024-08-11] MEDS: DICYCLOMINE HCL 10 MG CAPSULE 20 MG PO (09:24)
[2024-08-11] MEDS: methocarbamoL 500 MG TABLET PO ×4 (09:25→20:56)
[2024-08-11] MEDS: PANTOPRAZOLE SODIUM IV 40 MG VIAL IV PUSH ×2 (09:25→20:56)
[2024-08-11] MEDS: polyethylene glycoL 3350 17 GM POWD.PACK PO (12:29)
[2024-08-11] MEDS: SIMETHICONE 125 MG CHEW TAB PO ×3 (12:29→20:56)
--- NOTE | 2024-08-11 12:50 | P.PN_ITS ---
Progress Note: A&P Assessment and Plan (1) Large bowel obstruction: Code(s): K56.609 - Unspecified intestinal obstruction, unspecified as to partial versus complete obstruction Status: Acute Assessment and Plan: Appears to have a partial large bowel obstruction due to possible mass versus stricture versus is diverticulitis in the sigmoid colon. She does not appear to have an acute surgical abdomen at this time. The obstruction is only partial. White blood cell count on initial admission was 18,000. She was started on Zosyn for IV antibiotics. White blood cell count is down to 9000 this morning. Await consultation by GI. Patient will need to get a colonoscopy done for workup. Expect her to get a bowel prep in next 1 to 2 days and the colonoscopy hopefully shortly after that. She continued on clear liquids for now. Would have more surgical recommendations after a colonoscopy has been done. Subjective Date/time seen: 08/11/24 12:50 Interval history: Patient is clinically stable. Up walking the hallways. She has been tolerating clear liquids. No significant bowel movement yet. She does feel mildly bloated. She states she has not had a good bowel movement in last 2 to 3 weeks. 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 scan shows p ossible mass in sigmoid colon versus inflammatory changes or even diverticulitis. GI has been consult see her but that is still pending. Plans as per nursing is for the patient to get a colonoscopy early next week but as of this morning GI has not seen her. Exam GI: Other: Abdomen is soft it moderately distended. Bowel sounds are noted. No surgical scars on the abdomen and no ventral hernias. Minimal diffuse tenderness to palpation. Objective Data Vital Signs Vital Signs: Vital Signs - 24 hr 08/10/24 14:00 08/10/24 20:00 08/10/24 21:35 Temperature 37.1 C 36.1 C L Pulse Rate 83 80 Respiratory Rate 16 16 Blood Pressure 108/83 109/67 Pulse Oximetry 100 97 Oxygen Delivery Room Air 08/11/24 05:57 Temperature 36.1 C L Pulse Rate 70 Respiratory Rate 20 Blood Pressure 109/62 Pulse Oximetry 100 Oxygen Delivery Intake/Output Intake/Output: Intake & Output 08/08/24 08/09/24 08/10/24 08/11/24 23:59 23:59 23:59 23:59 Intake Total 1270 1460 Balance 1270 1460 Meds/Results Medications: Active Medications Generic Name Dose Route Start Last Admin Trade Name Freq PRN Reason Stop Dose Admin Dicyclomine HCl 20 mg 08/10/24 16:09 08/11/24 09:24 Dicyclomine Hcl 10 Mg Capsule PO 20 mg QID PRN Administration Abdominal Cramping Hydromorphone HCl 1 mg 08/10/24 09:41 08/10/24 20:48 Hydromorphone Hcl Inj (*Crx) 2 Mg/Ml Vial IV PUSH 1 mg Q4H PRN Administration Pain Rated 7-10 or breakthroug Piperacillin/Tazobactam/Dextrose 3.375 gm in 50 mls @ 100 mls/hr 08/10/24 18:00 08/11/24 12:29 Zosyn 3.375 Gm/Ns 50 Ml IVPB 100 mls/hr Q6HR DEVI Administration Methocarbamol 500 mg 08/10/24 21:00 08/11/24 12:29 Methocarbamol 500 Mg Tablet PO 500 mg QID DEVI Administration Morphine Sulfate 4 mg 08/10/24 17:14 Morphine Sulfate (*Crx) 4 Mg/Ml Inj IV PUSH Q3H PRN Pain Rated 4-6 Nonformulary Drug 0 mg 08/11/24 12:40 Lurasidone 40 Mg PO 09/10/24 12:39 DAILY DEVI Nonformulary Drug 0 mg 08/11/24 12:40 Lurasidone 20 Mg PO 09/10/24 12:39 DAILY DEVI Ondansetron HCl 4 mg 08/10/24 09:41 Ondansetron Inj 4 Mg/2 Ml Vial IV PUSH Q4H PRN Nausea Pantoprazole Sodium 40 mg 08/10/24 21:00 08/11/24 09:25 Pantoprazole Sodium Iv 40 Mg Vial IV PUSH 40 mg Q12HR DEVI Administration Polyethylene Glycol 17 gm 08/11/24 11:00 08/11/24 12:29 Polyethylene Glycol 3350 17 Gm Powd.Pack PO 17 gm QAM DEVI Administration Simethicone 125 mg 08/11/24 13:00 08/11/24 12:29 Simethicone 125 Mg Chew Tab PO 125 mg QID DEVI Administration Radiology Results: ITS Impressions Abdomen/Pelvis CT 08/10/24 07:50 Impression: Circumferential wall thickening of the distal sigmoid colon, with prominent stool upstream from this area, suspicious for colonic adenocarcinoma with early or partial large bowel obstruction. Infectious/inflammatory colitis would be a potential alternative consideration. Prominent appearance of the cervix, nonspecific. Transvaginal US 08/10/24 08:24 Impression: No definite evidence for torsion. Small amount of free fluid. Heterogeneous myometrium without discrete focal mass. Labs Labs: Laboratory Results - last 24 hr 08/11/24 06:36 WBC 9.1 RBC 3.54 L Hgb 11.5 L Hct 35.9 L MCV 101.4 H MCH 32.5 MCHC 32.0 RDW 13.4 Plt Count 307 MPV 10.3 Immature Gran % (Auto) 0.4 Neut % (Auto) 74.9 H Lymph % (Auto) 15.1 L Beauregard % (Auto) 7.7 Eos % (Auto) 1.3 Baso % (Auto) 0.6 Lymph # (Auto) 1.37 Bea[place]gard # (Auto) 0.7 H Eos # (Auto) 0.1 Baso # (Auto) 0.1 Abs Immat Gran (auto) 0.04 H Absolute Neuts (auto) 6.8 H Absolute Nucleated RBC 0.000 Nucleated RBC % 0.0 PT 14.6 INR 1.1 Sodium 138 Potassium 3.7 Chloride 106 Carbon Dioxide 26 Anion Gap 6 BUN 6 L Creatinine 0.79 Estim Creat Clear Calc 86 Estimated GFR > 60 Glucose 96 Calcium 8.7 Total Bilirubin 0.5 AST 35 ALT 25 Alkaline Phosphatase 47 Total Protein 6.2 L Albumin 3.5 Blood Type A Positive Antibody Screen Negative
[2024-08-11 14:00] VITALS: BP 119/74; PULSE 80; RESP 16; TEMP 36.1; O2SAT 100
--- NOTE | 2024-08-11 14:35 | WPDGICN ---
Assessment and Plan Assessment and plan (1) Colonic mass: Code(s): K63.89 - Other specified diseases of intestine Status: Acute Assessment and Plan: she will need colonoscopy to rule out malignancy given presentation and findings ct scan differential also could be from GLP1, colitis (had leukocytosis and now improved after abx), use of opiods, etc (2) Large bowel obstruction: Code(s): K56.609 - Unspecified intestinal obstruction, unspecified as to partial versus complete obstruction Status: Acute Assessment and Plan: overall better and less pain surgery on board will try colonoscopy on Tuesday (3) Bowel obstruction: Code(s): K56.609 - Unspecified intestinal obstruction, unspecified as to partial versus complete obstruction Status: Acute (4) RLQ abdominal pain: Code(s): R10.31 - Right lower quadrant pain Status: Acute (5) Leukocytosis: Code(s): D72.829 - Elevated white blood cell count, unspecified Status: Acute Assessment and Plan: better GI Consult Note Consult date/time: 08/11/24 14:35 Reason for consult: large bowel obstruction HPI: Bharti Olivo is a 44 year old female with history of interstitial cystitis and narcotic abuse more than 10 years ago currently on low dose of suboxone. She came the ED with new onset of lower abdominal pain. She last had a colonoscopy 5 years that was completely benign. She has family history of pancreatic cancer in her father and ovarian cancer in her mother. 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 About 3 weeks ago she used semaglutide for weight loss and about 2 weeks ago noted change in bowel habits with new constipation and only small size stool, recently more bloated and day of admission with severe RLQ, then also had nausea and vomiting. She states that she last had a formed stool roughly 2-3 weeks ago. ER showed leukocytosis and started on abx, CT scan reviewed that showed Circumferential wall thickening of the distal sigmoid colon, with prominent stool upstream from this area, suspicious for colonic adenocarcinoma with early or partial large bowel obstruction. Infectious/inflammatory colitis would be a potential alternative consideration. Surgery team on board. Review of Systems Constitutional: Constitutional: Denies body ache(s) Eyes: Eyes: Denies blurry vision ENT: Reports Normal hearing present Cardiovascular: Cardiovascular: Denies chest pain Respiratory: Respiratory: Denies cough Gastrointestinal: Gastrointestinal: Reports abdominal pain, Reports constipation, Reports nausea and Reports vomiting Genitourinary: Genitourinary: Reports urinary hesitancy Musculoskeletal: Musculoskeletal: Denies neck pain Integumentary/Breasts: Skin/Breast: Denies rash Neurologic: Denies Abnormal speech present Psychiatric: Psychiatric: Denies behavioral changes [facility] Past Medical History Medical History (Updated 08/11/24 @ 14:46 by Homer Retana MD) Leukocytosis RLQ abdominal pain Social History Social History Years smoked: 2 Smoking status: Former smoker Tobacco type: cigarettes Smoking end date: 07/22/24 Alcohol intake: current Drinks per week: 2 Do You Feel Safe in your Home?: Yes Lack of Transportation: No Lack of Food: Never True Current Housing: I Have Housing Concerned About Future Housing: No Difficulty Paying Gas/Electric Bills: No Difficulty Paying for Meds: No Currently Unemployed: No Education: Decline to Answer Difficulty w/ Childcare or Family Care: No Spiritual care concerns: No Meds Home Medications and Allergies Home Medications ?Medication ?Instructions ?Recorded ?Confirmed ?Type buprenorphine 8 mg-naloxone 2 mg 1 tablet sublingual DAILY 06/10/23 08/10/24 History sublingual tablet lurasidone 60 mg tablet 60 mg PO DAILY 08/10/24 08/10/24 History methylphenidate HCl 36 mg 36 mg PO .Q12 08/10/24 08/10/24 History tablet,extended release 24 hr Allergies Allergy/AdvReac Type Severity Reaction Status Date / Time Sulfa (Sulfonamide Allergy Rash Verified 08/10/24 15:56 Antibiotics) Vital Signs Vital Signs - 24 hr 08/10/24 20:00 08/10/24 21:35 08/11/24 05:57 Temperature 96.9 F L 96.9 F L Pulse Rate 80 70 Respiratory Rate 16 20 Blood Pressure 109/67 109/62 Pulse Oximetry 97 100 Oxygen Delivery Room Air Exam Const: General: uncomfortable HENMT: Mouth: Yes moist mucous membranes Eyes: General: appearance normal, both eyes and all related structures Neck: Neck: supple Resp: Effort & Inspection: normal respiratory effort Cardio: Rate: regular rate GI: GI Palp: Yes Soft to palpation, Yes Tenderness to palpation present (GI) (tenderness to palpation of RLQ) and No Guarding due to palpation present (GI) Auscultation: normal bowel sounds : General: Yes bladder normal to palpation Skin: General skin exam: normal color and no rashes or lesions noted Neuro: Speech: normal speech Extrem: General: normal to inspection Psych: Mental Status: mental status grossly normal Results Labs 08/11/24 06:36 08/11/24 06:36 Labs: Short CBC 08/11/24 Range/Units 06:36 WBC 9.1 (4.5-10.0) K/mm3 Hgb 11.5 L (12.0-15.0) g/dL Hct 35.9 L (37.0-47.0) % Plt Count 307 (150-375) k/mm3 BMP 08/11/24 06:36 Sodium 138 Potassium 3.7 Chloride 106 Carbon Dioxide 26 BUN 6 L Creatinine 0.79 Glucose 96 Calcium 8.7 Liver Function 08/11/24 Range/Units 06:36 Total Bilirubin 0.5 (0.2-1.3) mg/dL AST 35 (14-36) U/L ALT 25 (6-35) U/L Alkaline Phosphatase 47 (38-126) U/L Albumin 3.5 (3.5-5.1) g/dL
[2024-08-11] MEDS: MAGNESIUM CITRATE 300 ML BTL 150 ML PO (16:50)
[2024-08-11 22:00] VITALS: BP 106/81; PULSE 79; RESP 18; TEMP 36.4; O2SAT 100
[2024-08-12] MEDS: PIPERACILLN/TAZ 3.375GM/NS50ML 3.375 GM/50 ML BAG IVPB ×4 (00:09→16:42)
[2024-08-12] MEDS: DICYCLOMINE HCL 10 MG CAPSULE 20 MG PO ×3 (00:09→20:52)
[2024-08-12] MEDS: MORPHINE SULFATE (*CRX) 4 MG/ML INJ IV PUSH ×2 (01:13→12:18)
[2024-08-12 06:00] VITALS: BP 106/64; PULSE 71; RESP 18; TEMP 36.6; O2SAT 100
[2024-08-12 06:47] LABS: Hematocrit 34.2 % (37.0-47.0); Hemoglobin 10.9 g/dL (12.0-15.0); Mean Corpuscular HGB Conc 31.9 g/dl (32-36); Mean Corpuscular Hemoglobin 32.6 pg (26-34); Mean Corpuscular Volume 102.4 fl (80-100); Mean Platelet Volume 10.1 fl (7.4-10.4); Platelet Count Result 286 k/mm3 (150-375); Red Blood Count 3.34 M/mm3 (4.2-5.4); Red Cell Distribution Width 13.4 % (11.5-14.5); White Blood Count 5.8 K/mm3 (4.5-10.0)
[2024-08-12 06:59] LABS: Potassium 3.9 mmol/L (3.4-5.0)
[2024-08-12 07:06] LABS: Alanine Aminotransferase 27 U/L (6-35); Albumin Level 3.5 g/dL (3.5-5.1); Alkaline Phosphatase 48 U/L (38-126); Anion Gap 7 mmol/L (4-12); Aspartate Amino Transferase 35 U/L (14-36); Bilirubin,Total 0.5 mg/dL (0.2-1.3); Blood Urea Nitrogen 6 mg/dL (7-17); Calcium 8.9 mg/dL (8.4-10.2); Carbon Dioxide 26 mmol/L (22-30); Chloride 106 mmol/L (98-107); Estimated CRCL calculation 83 ml/min; Estimated Glomerular Filt Rate > 60; Glucose 85 mg/dL (65-110); Sodium 139 mmol/L (137-145); Total Protein 6.2 g/dL (6.3-8.2)
[2024-08-12] MEDS: methocarbamoL 500 MG TABLET PO ×4 (09:06→20:51)
[2024-08-12] MEDS: SIMETHICONE 125 MG CHEW TAB PO ×4 (09:06→20:52)
[2024-08-12] MEDS: polyethylene glycoL 3350 17 GM POWD.PACK PO (09:07)
[2024-08-12] MEDS: PANTOPRAZOLE SODIUM IV 40 MG VIAL IV PUSH ×2 (09:07→20:52)
[2024-08-12] MEDS: [UNRECOGNIZED DRUG - OTHER] PO (09:08)
[2024-08-12] MEDS: LURASIDONE 20 MG PO (09:08)
[2024-08-12] MEDS: LURASIDONE 40 MG PO (09:08)
[2024-08-12] MEDS: [UNRECOGNIZED DRUG - OTHER] PO (09:08)
--- NOTE | 2024-08-12 09:11 | WPDGIPROGNO ---
Progress Note: A&P Assessment and Plan (1) Bowel obstruction: Code(s): K56.609 - Unspecified intestinal obstruction, unspecified as to partial versus complete obstruction Status: Acute Assessment and Plan: bowel prep today and will attempt colonoscopy tomorrow to rule out mass surgery on board (2) RLQ abdominal pain: Code(s): R10.31 - Right lower quadrant pain Status: Acute (3) Leukocytosis: Code(s): D72.829 - Elevated white blood cell count, unspecified Status: Acute (4) Drug abuse, opioid type: Code(s): F11.10 - Opioid abuse, uncomplicated Status: Acute (5) Colonic mass: Code(s): K63.89 - Other specified diseases of intestine Status: Acute Subjective Date/time seen: 08/12/24 09:11 Interval history: less pain, still has not had a good BM Review of Systems Review of Systems: All systems reviewed & are unremarkable except as noted in HPI and below Exam Const: General: uncomfortable HENMT: Mouth: Yes moist mucous membranes Eyes: General: appearance normal, both eyes and all related structures Neck: Neck: supple Resp: Effort & Inspection: normal respiratory effort Cardio: Rate: regular rate GI: GI Palp: Yes Soft to palpation, Yes Tenderness to palpation present (GI) (tenderness to palpation of RLQ) and No Guarding due to palpation present (GI) Auscultation: normal bowel sounds : General: Yes bladder normal to palpation Skin: General skin exam: normal color and no rashes or lesions noted Neuro: Speech: normal speech Extrem: General: normal to inspection Psych: Mental Status: mental status grossly normal Objective Data Vital Signs Vital Signs: Vital Signs - 24 hr 08/11/24 14:00 08/11/24 20:00 08/11/24 22:00 Temperature 96.9 F L 97.5 F L Pulse Rate 80 79 Respiratory Rate 16 18 Blood Pressure 119/74 106/81 Pulse Oximetry 100 100 Oxygen Delivery Room Air 08/12/24 06:00 Temperature 97.9 F Pulse Rate 71 Respiratory Rate 18 Blood Pressure 106/64 Pulse Oximetry 100 Oxygen Delivery Intake/Output Intake/Output: Intake & Output 08/09/24 08/10/24 08/11/24 08/12/24 23:59 23:59 23:59 23:59 Intake Total 1270 3300 600 Balance 1270 3300 600 Meds/Results Medications: Active Medications Generic Name Dose Route Start Last Admin Trade Name Freq PRN Reason Stop Dose Admin Dicyclomine HCl 20 mg 08/10/24 16:09 08/12/24 09:06 Dicyclomine Hcl 10 Mg Capsule PO 20 mg QID PRN Administration Abdominal Cramping Hydromorphone HCl 1 mg 08/10/24 09:41 08/10/24 20:48 Hydromorphone Hcl Inj (*Crx) 2 Mg/Ml Vial IV PUSH 1 mg Q4H PRN Administration Pain Rated 7-10 or breakthroug Piperacillin/Tazobactam/Dextrose 3.375 gm in 50 mls @ 100 mls/hr 08/10/24 18:00 08/12/24 05:26 Zosyn 3.375 Gm/Ns 50 Ml IVPB 100 mls/hr Q6HR DEVI Administration Methocarbamol 500 mg 08/10/24 21:00 08/12/24 09:06 Methocarbamol 500 Mg Tablet PO 500 mg QID DEVI Administration Morphine Sulfate 4 mg 08/10/24 17:14 08/12/24 01:13 Morphine Sulfate (*Crx) 4 Mg/Ml Inj IV PUSH 4 mg Q3H PRN Administration Pain Rated 4-6 Nonformulary Drug 0 mg 08/11/24 12:40 08/12/24 09:08 Lurasidone 40 Mg PO 09/10/24 12:39 40 mg DAILY DEVI Administration Nonformulary Drug 0 mg 08/11/24 12:40 08/12/24 09:08 Lurasidone 20 Mg PO 09/10/24 12:39 20 mg DAILY DEVI Administration Ondansetron HCl 4 mg 08/10/24 09:41 Ondansetron Inj 4 Mg/2 Ml Vial IV PUSH Q4H PRN Nausea Pantoprazole Sodium 40 mg 08/10/24 21:00 08/12/24 09:07 Pantoprazole Sodium Iv 40 Mg Vial IV PUSH 40 mg Q12HR DEVI Administration Polyethylene Glycol 17 gm 08/11/24 11:00 08/12/24 09:07 Polyethylene Glycol 3350 17 Gm Powd.Pack PO 17 gm QAM DEVI Administration Simethicone 125 mg 08/11/24 13:00 08/12/24 09:06 Simethicone 125 Mg Chew Tab PO 125 mg QID DEVI Administration Radiology Results: ITS Impressions Abdomen/Pelvis CT 08/10/24 07:50 Impression: Circumferential wall thickening of the distal sigmoid colon, with prominent stool upstream from this area, suspicious for colonic adenocarcinoma with early or partial large bowel obstruction. Infectious/inflammatory colitis would be a potential alternative consideration. Prominent appearance of the cervix, nonspecific. Transvaginal US 08/10/24 08:24 Impression: No definite evidence for torsion. Small amount of free fluid. Heterogeneous myometrium without discrete focal mass. Labs Labs: Laboratory Results - last 24 hr 08/12/24 06:32 WBC 5.8 RBC 3.34 L Hgb 10.9 L Hct 34.2 L MCV 102.4 H MCH 32.6 MCHC 31.9 L RDW 13.4 Plt Count 286 MPV 10.1 Sodium 139 Potassium 3.9 Chloride 106 Carbon Dioxide 26 Anion Gap 7 BUN 6 L Creatinine 0.82 Estim Creat Clear Calc 83 Estimated GFR > 60 Glucose 85 Calcium 8.9 Total Bilirubin 0.5 AST 35 ALT 27 Alkaline Phosphatase 48 Total Protein 6.2 L Albumin 3.5
--- NOTE | 2024-08-12 11:39 | WPDPN ---
Progress Note: A&P Assessment and Plan (1) Large bowel obstruction: Code(s): K56.609 - Unspecified intestinal obstruction, unspecified as to partial versus complete obstruction Status: Acute Assessment and Plan: Patient appears to have partial obstruction of the sigmoid colon. Differential includes neoplasm versus colitis or diverticulitis versus inflammatory. She is being prepped today by GI for colonoscopy hopefully tomorrow. Further recommendations depend upon results of the study. Subjective Date/time seen: 08/12/24 11:39 Interval history: Patient clinically stable for surgery standpoint. No fever. White blood cell count still is normal. She still seems to be bloated and has not starting having any diarrhea or bowel movement yet. She just started her bowel prep for colonoscopy. No nausea or vomiting. Exam GI: Other: Abdomen is moderately distended but soft. Some mild left lower quadrant tenderness to palpation. No guarding rebound. Objective Data Vital Signs Vital Signs: Vital Signs - 24 hr 08/11/24 14:00 08/11/24 20:00 08/11/24 22:00 Temperature 36.1 C L 36.4 C L Pulse Rate 80 79 Respiratory Rate 16 18 Blood Pressure 119/74 106/81 Pulse Oximetry 100 100 Oxygen Delivery Room Air 08/12/24 06:00 08/12/24 08:00 Temperature 36.6 C Pulse Rate 71 Respiratory Rate 18 Blood Pressure 106/64 Pulse Oximetry 100 Oxygen Delivery Room Air Intake/Output Intake/Output: Intake & Output 08/09/24 08/10/24 08/11/24 08/12/24 23:59 23:59 23:59 23:59 Intake Total 1270 3300 600 Balance 1270 3300 600 Meds/Results Medications: Active Medications Generic Name Dose Route Start Last Admin Trade Name Freq PRN Reason Stop Dose Admin Bisacodyl 20 mg 08/12/24 16:00 Bisacodyl 5 Mg Tablet Ec PO 08/12/24 16:01 ONCE ONE Dicyclomine HCl 20 mg 08/10/24 16:09 08/12/24 09:06 Dicyclomine Hcl 10 Mg Capsule PO 20 mg QID PRN Administration Abdominal Cramping Hydromorphone HCl 1 mg 08/10/24 09:41 08/10/24 20:48 Hydromorphone Hcl Inj (*Crx) 2 Mg/Ml Vial IV PUSH 1 mg Q4H PRN Administration Pain Rated 7-10 or breakthroug Piperacillin/Tazobactam/Dextrose 3.375 gm in 50 mls @ 100 mls/hr 08/10/24 18:00 08/12/24 05:26 Zosyn 3.375 Gm/Ns 50 Ml IVPB 100 mls/hr Q6HR DEVI Administration Magnesium Citrate 300 ml 08/13/24 01:00 Magnesium Citrate 300 Ml Btl PO 08/13/24 01:01 ONCE ONE Methocarbamol 500 mg 08/10/24 21:00 08/12/24 09:06 Methocarbamol 500 Mg Tablet PO 500 mg QID DEVI Administration Morphine Sulfate 4 mg 08/10/24 17:14 08/12/24 01:13 Morphine Sulfate (*Crx) 4 Mg/Ml Inj IV PUSH 4 mg Q3H PRN Administration Pain Rated 4-6 Nonformulary Drug 0 mg 08/11/24 12:40 08/12/24 09:08 Lurasidone 40 Mg PO 09/10/24 12:39 40 mg DAILY DEVI Administration Nonformulary Drug 0 mg 08/11/24 12:40 08/12/24 09:08 Lurasidone 20 Mg PO 09/10/24 12:39 20 mg DAILY DEVI Administration Ondansetron HCl 4 mg 08/10/24 09:41 Ondansetron Inj 4 Mg/2 Ml Vial IV PUSH Q4H PRN Nausea Pantoprazole Sodium 40 mg 08/10/24 21:00 08/12/24 09:07 Pantoprazole Sodium Iv 40 Mg Vial IV PUSH 40 mg Q12HR DEVI Administration Polyethylene Glycol 17 gm 08/11/24 11:00 08/12/24 09:07 Polyethylene Glycol 3350 17 Gm Powd.Pack PO 17 gm QAM DEVI Administration Polyethylene Glycol 238 gm 08/12/24 16:00 Polyethylene Glycol 3350 238 Gm Bottle PO 08/12/24 16:01 ONCE ONE Simethicone 125 mg 08/11/24 13:00 08/12/24 09:06 Simethicone 125 Mg Chew Tab PO 125 mg QID DEVI Administration Radiology Results: ITS Impressions Abdomen/Pelvis CT 08/10/24 07:50 Impression: Circumferential wall thickening of the distal sigmoid colon, with prominent stool upstream from this area, suspicious for colonic adenocarcinoma with early or partial large bowel obstruction. Infectious/inflammatory colitis would be a potential alternative consideration. Prominent appearance of the cervix, nonspecific. Transvaginal US 08/10/24 08:24 Impression: No definite evidence for torsion. Small amount of free fluid. Heterogeneous myometrium without discrete focal mass. Labs Labs: Laboratory Results - last 24 hr 08/12/24 06:32 WBC 5.8 RBC 3.34 L Hgb 10.9 L Hct 34.2 L MCV 102.4 H MCH 32.6 MCHC 31.9 L RDW 13.4 Plt Count 286 MPV 10.1 Sodium 139 Potassium 3.9 Chloride 106 Carbon Dioxide 26 Anion Gap 7 BUN 6 L Creatinine 0.82 Estim Creat Clear Calc 83 Estimated GFR > 60 Glucose 85 Calcium 8.9 Total Bilirubin 0.5 AST 35 ALT 27 Alkaline Phosphatase 48 Total Protein 6.2 L Albumin 3.5
[2024-08-12 14:00] VITALS: BP 121/66; PULSE 68; RESP 16; TEMP 36.6; O2SAT 100
--- NOTE | 2024-08-12 15:39 | PM.IMPN ---
Progress Note: A&P Assessment and Plan (1) Bowel obstruction: Code(s): K56.609 - Unspecified intestinal obstruction, unspecified as to partial versus complete obstruction Status: Acute (2) Colonic mass: Code(s): K63.89 - Other specified diseases of intestine Status: Acute (3) Large bowel obstruction: Code(s): K56.609 - Unspecified intestinal obstruction, unspecified as to partial versus complete obstruction Status: Acute (4) Colon abnormality: Code(s): K63.9 - Disease of intestine, unspecified Status: Acute Plan Large Bowel Obstruction vs Suspicious Colonic adeno carcinoma vs Colitis Started on clear liquid by surgery Possible aggravating factor: Suboxone and semaglutide Consider NG tube if necessary Monitor electrolytes Will consider TPN if necessary, on PRN pain control Gen surgery following GI following Bentyl for abdominal cramping Zofran for nausea Protonix for GI Protection On Zosyn Possible colonoscopy Tuesday Suboxone use Hold Suboxone due to bowel obstruction Hold semaglutide Higher dose of opiates due to Suboxone use Continuing Suboxone and opiates will aggravate to bowel obstruction so holding Suboxone Will restart Suboxone after checking buprenorphine in urine Goal to start Suboxone within 7 days of last does UTI Continue Zosyn DVT prophylaxis: Lovenox 40 mg subQ Subjective Date/time seen: 08/12/24 15:39 Interval history: Patient will be requiring high-dose of opiates due to Suboxone use in the past. Colonoscopy tomorrow. Review of Systems Review of Systems: All systems reviewed & are unremarkable except as noted in HPI and below Exam Narrative: EXAMINATION OF ORGAN SYSTEMS/BODY AREAS: Constitutional: Vital signs per nursing GENERAL: Appears quite comfortable in the bed HEAD: Normal with no signs of head trauma. EYES: EOMI, conjunctiva normal ENT: Hearing grossly intact LUNGS: Nonlabored breathing. HEART: [Regular rate and rhythm] ABD: [Soft], some tenderness to palpation right lower quadrant EXT: Normal range of motion SKIN: [No rashes or lesions.] NEURO: [Alert and oriented x 3. No gross focal sensory or strength deficits.] PSYCH: Normal affect Const: General: uncomfortable Other: patient having significant lower abdominal pain HENMT: Mouth: Yes moist mucous membranes Eyes: General: appearance normal, both eyes and all related structures Neck: Neck: supple Resp: Effort & Inspection: normal respiratory effort Cardio: Rate: regular rate GI: Auscultation: normal bowel sounds : General: Yes bladder normal to palpation Bimanual exam- vagina & uterus: bladder normal to palpation Skin: General skin exam: normal color and no rashes or lesions noted Neuro: Speech: normal speech Extrem: General: normal to inspection Psych: Mental Status: mental status grossly normal Objective Data Vital Signs Vital Signs: Vital Signs - 24 hr 08/11/24 20:00 08/11/24 22:00 08/12/24 06:00 Temperature 97.5 F L 97.9 F Pulse Rate 79 71 Respiratory Rate 18 18 Blood Pressure 106/81 106/64 Pulse Oximetry 100 100 Oxygen Delivery Room Air 08/12/24 08:00 08/12/24 14:00 Temperature 97.9 F Pulse Rate 68 Respiratory Rate 16 Blood Pressure 121/66 Pulse Oximetry 100 Oxygen Delivery Room Air Intake/Output Intake/Output: Intake & Output 08/09/24 08/10/24 08/11/24 08/12/24 23:59 23:59 23:59 23:59 Intake Total 1270 3300 700 Balance 1270 3300 700 Meds/Results Medications: Active Medications Generic Name Dose Route Start Last Admin Trade Name Freq PRN Reason Stop Dose Admin Bisacodyl 20 mg 08/12/24 16:00 Bisacodyl 5 Mg Tablet Ec PO 08/12/24 16:01 ONCE ONE Dicyclomine HCl 20 mg 08/10/24 16:09 08/12/24 09:06 Dicyclomine Hcl 10 Mg Capsule PO 20 mg QID PRN Administration Abdominal Cramping Hydromorphone HCl 1 mg 08/10/24 09:41 08/10/24 20:48 Hydromorphone Hcl Inj (*Crx) 2 Mg/Ml Vial IV PUSH 1 mg Q4H PRN Administration Pain Rated 7-10 or breakthroug Piperacillin/Tazobactam/Dextrose 3.375 gm in 50 mls @ 100 mls/hr 08/10/24 18:00 08/12/24 12:46 Zosyn 3.375 Gm/Ns 50 Ml IVPB Infused Q6HR DEVI Infusion Magnesium Citrate 300 ml 08/13/24 01:00 Magnesium Citrate 300 Ml Btl PO 08/13/24 01:01 ONCE ONE Methocarbamol 500 mg 08/10/24 21:00 08/12/24 12:17 Methocarbamol 500 Mg Tablet PO 500 mg QID DEVI Administration Morphine Sulfate 4 mg 08/10/24 17:14 08/12/24 12:18 Morphine Sulfate (*Crx) 4 Mg/Ml Inj IV PUSH 4 mg Q3H PRN Administration Pain Rated 4-6 Nonformulary Drug 0 mg 08/11/24 12:40 08/12/24 09:08 Lurasidone 40 Mg PO 09/10/24 12:39 40 mg DAILY DEVI Administration Nonformulary Drug 0 mg 08/11/24 12:40 08/12/24 09:08 Lurasidone 20 Mg PO 09/10/24 12:39 20 mg DAILY DEVI Administration Ondansetron HCl 4 mg 08/10/24 09:41 Ondansetron Inj 4 Mg/2 Ml Vial IV PUSH Q4H PRN Nausea Pantoprazole Sodium 40 mg 08/10/24 21:00 08/12/24 09:07 Pantoprazole Sodium Iv 40 Mg Vial IV PUSH 40 mg Q12HR DEVI Administration Polyethylene Glycol 17 gm 08/11/24 11:00 08/12/24 09:07 Polyethylene Glycol 3350 17 Gm Powd.Pack PO 17 gm QAM DEVI Administration Polyethylene Glycol 238 gm 08/12/24 16:00 Polyethylene Glycol 3350 238 Gm Bottle PO 08/12/24 16:01 ONCE ONE Simethicone 125 mg 08/11/24 13:00 08/12/24 12:17 Simethicone 125 Mg Chew Tab PO 125 mg QID DEVI Administration Radiology Results: ITS Impressions Abdomen/Pelvis CT 08/10/24 07:50 Impression: Circumferential wall thickening of the distal sigmoid colon, with prominent stool upstream from this area, suspicious for colonic adenocarcinoma with early or partial large bowel obstruction. Infectious/inflammatory colitis would be a potential alternative consideration. Prominent appearance of the cervix, nonspecific. Transvaginal US 08/10/24 08:24 Impression: No definite evidence for torsion. Small amount of free fluid. Heterogeneous myometrium without discrete focal mass. Labs Labs: Laboratory Results - last 24 hr 08/12/24 06:32 WBC 5.8 RBC 3.34 L Hgb 10.9 L Hct 34.2 L MCV 102.4 H MCH 32.6 MCHC 31.9 L RDW 13.4 Plt Count 286 MPV 10.1 Sodium 139 Potassium 3.9 Chloride 106 Carbon Dioxide 26 Anion Gap 7 BUN 6 L Creatinine 0.82 Estim Creat Clear Calc 83 Estimated GFR > 60 Glucose 85 Calcium 8.9 Total Bilirubin 0.5 AST 35 ALT 27 Alkaline Phosphatase 48 Total Protein 6.2 L Albumin 3.5 Hospitalist MIPS Advance Care Plan I have confirmed that the patient's Advanced Care Plan is present, code status is documented, or surrogate decision maker is listed in patient medical record.: Yes Medication Reconciliation I have utilized all available resources to obtain, update and review the patients current medications (includes all prescriptions, OTC, herbals, cannabis, and nutritional supplements).: Yes
[2024-08-12] MEDS: BISACODYL 5 MG TABLET EC 20 MG PO (16:38)
[2024-08-12] MEDS: polyethylene glycoL 3350 238 GM BOTTLE PO (16:39)
[2024-08-12 22:00] VITALS: BP 119/86; PULSE 85; RESP 18; TEMP 36.6; O2SAT 94
[2024-08-13] VITALS (8 sets, daily range): BP systolic 97–109; BP diastolic 54–71; PULSE 59–85; RESP 15–20; TEMP 36.1–36.9; O2SAT 98–100
[2024-08-13] MEDS: PIPERACILLN/TAZ 3.375GM/NS50ML 3.375 GM/50 ML BAG IVPB ×2 (00:26→05:55)
[2024-08-13] MEDS: MAGNESIUM CITRATE 300 ML BTL PO (00:30)
[2024-08-13 06:25] LABS: Hematocrit 38.5 % (37.0-47.0); Hemoglobin 12.4 g/dL (12.0-15.0); Mean Corpuscular HGB Conc 32.2 g/dl (32-36); Mean Corpuscular Hemoglobin 33.1 pg (26-34); Mean Corpuscular Volume 102.7 fl (80-100); Mean Platelet Volume 10.8 fl (7.4-10.4); Platelet Count Result 328 k/mm3 (150-375); Red Blood Count 3.75 M/mm3 (4.2-5.4); Red Cell Distribution Width 13.3 % (11.5-14.5); White Blood Count 6.4 K/mm3 (4.5-10.0)
[2024-08-13 06:53] LABS: Alanine Aminotransferase 38 U/L (6-35); Albumin Level 4.1 g/dL (3.5-5.1); Alkaline Phosphatase 66 U/L (38-126); Anion Gap 10 mmol/L (4-12); Aspartate Amino Transferase 47 U/L (14-36); Bilirubin,Total 0.3 mg/dL (0.2-1.3); Blood Urea Nitrogen 4 mg/dL (7-17); Calcium 9.3 mg/dL (8.4-10.2); Carbon Dioxide 22 mmol/L (22-30); Chloride 107 mmol/L (98-107); Estimated CRCL calculation 88 ml/min; Estimated Glomerular Filt Rate > 60; Glucose 99 mg/dL (65-110); Potassium 3.6 mmol/L (3.4-5.0); Sodium 139 mmol/L (137-145); Total Protein 7.3 g/dL (6.3-8.2)
[2024-08-13 07:12] LABS: Carcinoembryonic Antigen 0.4 ng/mL (0.0-3.0)
[2024-08-13] MEDS: methocarbamoL 500 MG TABLET PO ×3 (08:34→20:32)
[2024-08-13] MEDS: SIMETHICONE 125 MG CHEW TAB PO ×3 (08:35→20:32)
[2024-08-13] MEDS: PANTOPRAZOLE SODIUM IV 40 MG VIAL IV PUSH (08:35)
[2024-08-13] MEDS: LURASIDONE 20 MG PO (08:36)
[2024-08-13] MEDS: [UNRECOGNIZED DRUG - OTHER] PO (08:36)
[2024-08-13] MEDS: [UNRECOGNIZED DRUG - OTHER] PO (08:36)
[2024-08-13] MEDS: LURASIDONE 40 MG PO (08:36)
[2024-08-13] MEDS: LORazepam INJ (*CRX) 2 MG/ML VIAL 0.5 MG IV PUSH (10:20)
--- NOTE | 2024-08-13 12:06 | PM.PNGS ---
Progress Note: A&P Assessment and Plan (1) Large bowel obstruction: Code(s): K56.609 - Unspecified intestinal obstruction, unspecified as to partial versus complete obstruction Status: Acute Assessment and Plan: Patient appears to have partial obstruction of the sigmoid colon. Differential includes neoplasm versus colitis or diverticulitis versus inflammatory. She was able to tolerate the bowel prep and is scheduled for a colonoscopy later today. Further surgical recommendations depending on these results. Will follow along. Plan I have discussed the patient's case and plan of care with Dr. Salvador. Subjective Subjective Date/Time Seen: 08/13/24 12:06 Patient reports: no new complaints, flatus and bowel movement Interval history: Patient tolerated the colonoscopy prep overnight. No nausea or vomiting. Bowels have been moving well with the prep. She reports some bloating in her lower abdomen, but no abdominal pain this morning. No other complaints at this time. Exam Const: General: comfortable and no acute distress GI: Inspection: non-distended GI Palp: Yes Soft to palpation, Yes Tenderness to palpation present (GI) (Mild tenderness in the left lower quadrant), No Guarding due to palpation present (GI) and No Rebound tenderness present Auscultation: normal bowel sounds Objective Data Vital Signs Vital Signs: Vital Signs - 24 hr 08/12/24 14:00 08/12/24 20:00 08/12/24 22:00 Temperature 97.9 F 98 F Pulse Rate 68 85 Respiratory Rate 16 18 Blood Pressure 121/66 119/86 Pulse Oximetry 100 94 Oxygen Delivery Room Air 08/13/24 06:00 Temperature 97.6 F Pulse Rate 59 L Respiratory Rate 18 Blood Pressure 104/65 Pulse Oximetry 100 Oxygen Delivery Intake/Output Intake/Output: Intake & Output 08/10/24 08/11/24 08/12/24 08/13/24 23:59 23:59 23:59 23:59 Intake Total 1270 3300 750 350 Balance 1270 3300 750 350 Meds/Results Medications: Active Medications Generic Name Dose Route Start Last Admin Trade Name Freq PRN Reason Stop Dose Admin Dicyclomine HCl 20 mg 08/10/24 16:09 08/12/24 20:52 Dicyclomine Hcl 10 Mg Capsule PO 20 mg QID PRN Administration Abdominal Cramping Hydromorphone HCl 1 mg 08/10/24 09:41 08/10/24 20:48 Hydromorphone Hcl Inj (*Crx) 2 Mg/Ml Vial IV PUSH 1 mg Q4H PRN Administration Pain Rated 7-10 or breakthroug Piperacillin/Tazobactam/Dextrose 3.375 gm in 50 mls @ 100 mls/hr 08/10/24 18:00 08/13/24 05:55 Zosyn 3.375 Gm/Ns 50 Ml IVPB 100 mls/hr Q6HR DEVI Administration Lorazepam 0.5 mg 08/13/24 11:17 Lorazepam Inj (*Crx) 2 Mg/Ml Vial IV PUSH Q4HR PRN Anxiety Methocarbamol 500 mg 08/10/24 21:00 08/13/24 08:34 Methocarbamol 500 Mg Tablet PO 500 mg QID DEVI Administration Morphine Sulfate 4 mg 08/10/24 17:14 08/12/24 12:18 Morphine Sulfate (*Crx) 4 Mg/Ml Inj IV PUSH 4 mg Q3H PRN Administration Pain Rated 4-6 Nonformulary Drug 0 mg 08/11/24 12:40 08/13/24 08:36 Lurasidone 40 Mg PO 09/10/24 12:39 40 mg DAILY DEVI Administration Nonformulary Drug 0 mg 08/11/24 12:40 08/13/24 08:36 Lurasidone 20 Mg PO 09/10/24 12:39 20 mg DAILY DEVI Administration Olopatadine HCl 1 drop 08/12/24 21:00 08/12/24 21:09 Olopatadine 0.1% Ophth Soln 5 Ml Btl EACH EYE Not Given Q12HR [facility] Ondansetron HCl 4 mg 08/10/24 09:41 Ondansetron Inj 4 Mg/2 Ml Vial IV PUSH Q4H PRN Nausea Pantoprazole Sodium 40 mg 08/10/24 21:00 08/13/24 08:35 Pantoprazole Sodium Iv 40 Mg Vial IV PUSH 40 mg Q12HR DEVI Administration Polyethylene Glycol 17 gm 08/11/24 11:00 08/13/24 08:34 Polyethylene Glycol 3350 17 Gm Powd.Pack PO Not Given QAM DEVI Simethicone 125 mg 08/11/24 13:00 08/13/24 08:35 Simethicone 125 Mg Chew Tab PO 125 mg QID DEVI Administration Radiology Results: ITS Impressions Abdomen/Pelvis CT 08/10/24 07:50 Impression: Circumferential wall thickening of the distal sigmoid colon, with prominent stool upstream from this area, suspicious for colonic adenocarcinoma with early or partial large bowel obstruction. Infectious/inflammatory colitis would be a potential alternative consideration. Prominent appearance of the cervix, nonspecific. Transvaginal US 08/10/24 08:24 Impression: No definite evidence for torsion. Small amount of free fluid. Heterogeneous myometrium without discrete focal mass. Labs Labs: Laboratory Results - last 24 hr 08/13/24 06:00 WBC 6.4 RBC 3.75 L Hgb 12.4 Hct 38.5 MCV 102.7 H MCH 33.1 MCHC 32.2 RDW 13.3 Plt Count 328 MPV 10.8 H Sodium 139 Potassium 3.6 Chloride 107 Carbon Dioxide 22 Anion Gap 10 BUN 4 L Creatinine 0.77 Estim Creat Clear Calc 88 Estimated GFR > 60 Glucose 99 Calcium 9.3 Total Bilirubin 0.3 AST 47 H ALT 38 H Alkaline Phosphatase 66 Total Protein 7.3 Albumin 4.1 Carcinoembryonic Ag 0.4
[2024-08-13] MEDS: LACTATED RINGERS 1,000 ML 150 ML IV CONT (14:13)
--- NOTE | 2024-08-13 14:18 | P.PNAN_ITS ---
Anes - Initial Pre Proc Eval Procedure: Operation Date: 08/13/24 15:15 Proposed Procedures p Diagnostic Colonoscopy - Goyo Sandoval MD Date/Time: 08/13/24 14:18 Surgeon: Juan Ramon Stubbs MD Pre Op Diagnosis: Abd Pain/N/V/Bowel Obstr/Possible Cancer Patient Data Age: 44 Gender: F Height: 1.68 m Weight: 87.2 kg Last Vital Signs Temp 36.3 C L 08/13/24 14:01 Pulse 64 08/13/24 14:01 Resp 18 08/13/24 14:01 BP 105/71 08/13/24 14:01 Pulse Ox 98 08/13/24 14:01 O2 Del Method Room Air 08/13/24 14:01 Allergies Allergy/AdvReac Type Severity Reaction Status Date / Time Sulfa (Sulfonamide Allergy Rash Verified 08/13/24 14:00 Antibiotics) Home Medications ?Medication ?Instructions ?Recorded ?Confirmed ?Type buprenorphine 8 mg-naloxone 2 mg 1 tablet sublingual DAILY 06/10/23 08/10/24 History sublingual tablet lurasidone 60 mg tablet 60 mg PO DAILY 08/10/24 08/10/24 History methylphenidate HCl 36 mg 36 mg PO .Q12 08/10/24 08/10/24 History tablet,extended release 24 hr Laboratory Tests 08/13/24 06:00 WBC 6.4 K/mm3 (4.5-10.0) RBC 3.75 L M/mm3 (4.2-5.4) Hgb 12.4 g/dL (12.0-15.0) Hct 38.5 % (37.0-47.0) MCV 102.7 H fl (80-100) MCH 33.1 pg (26-34) MCHC 32.2 g/dl (32-36) RDW 13.3 % (11.5-14.5) Plt Count 328 k/mm3 (150-375) MPV 10.8 H fl (7.4-10.4) Sodium 139 mmol/L (137-145) Potassium 3.6 mmol/L (3.4-5.0) Chloride 107 mmol/L (98-107) Carbon Dioxide 22 mmol/L (22-30) Anion Gap 10 mmol/L (4-12) BUN 4 L mg/dL (7-17) Creatinine 0.77 mg/dL (0.7-1.0) Estim Creat Clear Calc 88 ml/min Estimated GFR > 60 (59 - ) Glucose 99 mg/dL (65-110) Calcium 9.3 mg/dL (8.4-10.2) Total Bilirubin 0.3 mg/dL (0.2-1.3) AST 47 H U/L (14-36) ALT 38 H U/L (6-35) Alkaline Phosphatase 66 U/L (38-126) Total Protein 7.3 g/dL (6.3-8.2) Albumin 4.1 g/dL (3.5-5.1) Carcinoembryonic Ag 0.4 ng/mL (0.0-3.0) Patient hx anesthesia problems: none Family hx anesthesia problems: none Results Review: All pre-operative results and documents have been reviewed as part of the pre- operative evaluation. [facility] Past Medical History Medical History (Updated 08/12/24 @ 09:12 by Homer Retana MD) Drug abuse, opioid type Leukocytosis RLQ abdominal pain Social History Social History Years smoked: 2 Smoking status: Former smoker Tobacco type: cigarettes Smoking end date: 07/22/24 Alcohol intake: current Drinks per week: 2 Do You Feel Safe in your Home?: Yes Lack of Transportation: No Lack of Food: Never True Current Housing: I Have Housing Concerned About Future Housing: No Difficulty Paying Gas/Electric Bills: No Difficulty Paying for Meds: No Currently Unemployed: No Education: Decline to Answer Difficulty w/ Childcare or Family Care: No Spiritual care concerns: No Anes - Eval Final PreProcedure Day of Procedure 08/13/24 14:18 Patient weight: obese Heart: regular rate and rhythm Lungs: clear to auscultation Airway: Mallampati scale class II Neurological: alert and oriented Last oral intake: >/= 8 hours ASA classification: III Emergent: no Anesthetic plan: proceed Anesthesia type and monitoring: general GIVS and standard monitoring Results Review: All pre-operative results and documents have been reviewed as part of the pre- operative evaluation. Informed Consent: The patient's anesthetic plan and its attendant risks and benefits were discussed with the patient/family/POA. Questions were solicited and answers provided to the satisfaction of the patient/family/POA.
--- NOTE | 2024-08-13 16:38 | S_PTH ---
PATIENT: Bharti Olivo LOC: [id number] U#:[id number] AGE/SX: 44/F ROOM: 329 RE08/10/[address]: Leela Hale MD : 1980 BED: 01 DIS: 08/14/2024 SPEC #: [id number] RECD: 08/14/24 07:57 STATUS: CATHIE RESherita #: [id number] JESUS: 08/13/24 16:[address]: Goyo Sandoval DEPT: [facility] Surgical RECD BY: Edie Alvarez ENTERED: 08/14/24 07:57 SP TYPE: Surgical OTHR DR: Juan Ramon Stubbs MD UNKNOWN,DOCTOR Lan Salvador MD Tissues: A - Colon Biopsy Procedures: Hematoxylin and Eosin Stain Gross and Microscopic Level 4
--- NOTE | 2024-08-13 17:05 | WPDGIPROGNO ---
Progress Note: A&P Assessment and Plan (1) Sigmoid ulcer: Code(s): K63.3 - Ulcer of intestine Status: Acute Assessment and Plan: The patient has an isolated benign appearing sigmoid ulcer, which was biopsied, see colonoscopy report. There is no evidence of obstruction or malignancy, however CT scan imaging might have showed some degree of inflammation around the ulcer. However, these findings cannot explain obstruction, rather, semaglutide might have been a contributing factor to her transient apparent obstruction. Since the patient is clinically stable and has no abdominal pain at this point, she can be safely discharged either tonight or tomorrow morning. In the meantime, she can have a full liquid diet Subjective Date/time seen: 08/13/24 17:05 Objective Data Vital Signs Vital Signs: Vital Signs - 24 hr 08/12/24 20:00 08/12/24 22:00 08/13/24 06:00 Temperature 98 F 97.6 F Pulse Rate 85 59 L Respiratory Rate 18 18 Blood Pressure 119/86 104/65 Pulse Oximetry 94 100 Oxygen Delivery Room Air 08/13/24 13:57 08/13/24 14:01 08/13/24 16:42 Temperature 98.4 F 97.3 F L Pulse Rate 64 64 67 Respiratory Rate 16 18 20 Blood Pressure 108/67 105/71 109/69 Pulse Oximetry 100 98 100 Oxygen Delivery Room Air Room Air 08/13/24 16:52 Temperature Pulse Rate 71 Respiratory Rate 20 Blood Pressure 109/59 L Pulse Oximetry 99 Oxygen Delivery Room Air Intake/Output Intake/Output: Intake & Output 08/10/24 08/11/24 08/12/24 08/13/24 23:59 23:59 23:59 23:59 Intake Total 1270 3300 750 350 Balance 1270 3300 750 350 Meds/Results Medications: Active Medications Generic Name Dose Route Start Last Admin Trade Name Freq PRN Reason Stop Dose Admin Amoxicillin/Clavulanate Potassium 1 tablet 08/13/24 21:00 Amoxicillin/Clavulanate K 875-125 Mg Tab PO Q12HR DEVI Dicyclomine HCl 20 mg 08/10/24 16:09 08/12/24 20:52 Dicyclomine Hcl 10 Mg Capsule PO 20 mg QID PRN Administration Abdominal Cramping Hydromorphone HCl 1 mg 08/10/24 09:41 08/10/24 20:48 Hydromorphone Hcl Inj (*Crx) 2 Mg/Ml Vial IV PUSH 1 mg Q4H PRN Administration Pain Rated 7-10 or breakthroug Lactated Ringer's 1,000 mls @ 150 mls/hr 08/13/24 14:05 08/13/24 16:41 Lr - Lactated Ringers Iv IV CONT 150 mls/hr .Q6H40M DEVI Infusion Lorazepam 0.5 mg 08/13/24 11:17 Lorazepam Inj (*Crx) 2 Mg/Ml Vial IV PUSH Q4HR PRN Anxiety Methocarbamol 500 mg 08/10/24 21:00 08/13/24 08:34 Methocarbamol 500 Mg Tablet PO 500 mg QID DEVI Administration Morphine Sulfate 4 mg 08/10/24 17:14 08/12/24 12:18 Morphine Sulfate (*Crx) 4 Mg/Ml Inj IV PUSH 4 mg Q3H PRN Administration Pain Rated 4-6 Nonformulary Drug 0 mg 08/11/24 12:40 08/13/24 08:36 Lurasidone 40 Mg PO 09/10/24 12:39 40 mg DAILY DEVI Administration Nonformulary Drug 0 mg 08/11/24 12:40 08/13/24 08:36 Lurasidone 20 Mg PO 09/10/24 12:39 20 mg DAILY DEVI Administration Olopatadine HCl 1 drop 08/12/24 21:00 08/12/24 21:09 Olopatadine 0.1% Ophth Soln 5 Ml Btl EACH EYE Not Given Q12HR DEVI Ondansetron HCl 4 mg 08/10/24 09:41 Ondansetron Inj 4 Mg/2 Ml Vial IV PUSH Q4H PRN Nausea Simethicone 125 mg 08/11/24 13:00 08/13/24 08:35 Simethicone 125 Mg Chew Tab PO 125 mg QID DEVI Administration Radiology Results: ITS Impressions Abdomen/Pelvis CT 08/10/24 07:50 Impression: Circumferential wall thickening of the distal sigmoid colon, with prominent stool upstream from this area, suspicious for colonic adenocarcinoma with early or partial large bowel obstruction. Infectious/inflammatory colitis would be a potential alternative consideration. Prominent appearance of the cervix, nonspecific. Transvaginal US 08/10/24 08:24 Impression: No definite evidence for torsion. Small amount of free fluid. Heterogeneous myometrium without discrete focal mass. Labs Labs: Laboratory Results - last 24 hr 08/13/24 06:00 WBC 6.4 RBC 3.75 L Hgb 12.4 Hct 38.5 MCV 102.7 H MCH 33.1 MCHC 32.2 RDW 13.3 Plt Count 328 MPV 10.8 H Sodium 139 Potassium 3.6 Chloride 107 Carbon Dioxide 22 Anion Gap 10 BUN 4 L Creatinine 0.77 Estim Creat Clear Calc 88 Estimated GFR > 60 Glucose 99 Calcium 9.3 Total Bilirubin 0.3 AST 47 H ALT 38 H Alkaline Phosphatase 66 Total Protein 7.3 Albumin 4.1 Carcinoembryonic Ag 0.4
[2024-08-13] MEDS: AMOXICILLIN/CLAVULANATE K 875-125 MG TAB 1 TABLET PO (20:32)
[2024-08-13] MEDS: DICYCLOMINE HCL 10 MG CAPSULE 20 MG PO (20:35)
--- NOTE | 2024-08-13 21:59 | PM.IMPN ---
Progress Note: A&P Assessment and Plan (1) Bowel obstruction: Code(s): K56.609 - Unspecified intestinal obstruction, unspecified as to partial versus complete obstruction Status: Acute (2) Colonic mass: Code(s): K63.89 - Other specified diseases of intestine Status: Acute (3) Large bowel obstruction: Code(s): K56.609 - Unspecified intestinal obstruction, unspecified as to partial versus complete obstruction Status: Acute (4) Colon abnormality: Code(s): K63.9 - Disease of intestine, unspecified Status: Acute Plan Large Bowel Obstruction vs Suspicious Colonic adeno carcinoma vs Colitis Started on clear liquid by surgery Possible aggravating factor: Suboxone and semaglutide Consider NG tube if necessary Monitor electrolytes Will consider TPN if necessary, on PRN pain control Gen surgery following GI following Bentyl for abdominal cramping Zofran for nausea Protonix for GI Protection On Zosyn Possible colonoscopy Tuesday Suboxone use Hold Suboxone due to bowel obstruction Hold semaglutide Higher dose of opiates due to Suboxone use Continuing Suboxone and opiates will aggravate to bowel obstruction so holding Suboxone Will restart Suboxone after checking buprenorphine in urine Goal to start Suboxone within 7 days of last does UTI Continue Zosyn DVT prophylaxis: Lovenox 40 mg subQ Subjective Date/time seen: 08/13/24 21:59 Interval history: patient resting comfortable . Review of Systems Review of Systems: All systems reviewed & are unremarkable except as noted in HPI and below Exam Narrative: EXAMINATION OF ORGAN SYSTEMS/BODY AREAS: Constitutional: Vital signs per nursing GENERAL: Appears quite comfortable in the bed HEAD: Normal with no signs of head trauma. EYES: EOMI, conjunctiva normal ENT: Hearing grossly intact LUNGS: Nonlabored breathing. HEART: [Regular rate and rhythm] ABD: [Soft], some tenderness to palpation right lower quadrant EXT: Normal range of motion SKIN: [No rashes or lesions.] NEURO: [Alert and oriented x 3. No gross focal sensory or strength deficits.] PSYCH: Normal affect Const: General: uncomfortable Other: patient having significant lower abdominal pain HENMT: Mouth: Yes moist mucous membranes Eyes: General: appearance normal, both eyes and all related structures Neck: Neck: supple Resp: Effort & Inspection: normal respiratory effort Cardio: Rate: regular rate GI: Auscultation: normal bowel sounds : General: Yes bladder normal to palpation Bimanual exam- vagina & uterus: bladder normal to palpation Skin: General skin exam: normal color and no rashes or lesions noted Neuro: Speech: normal speech Extrem: General: normal to inspection Psych: Mental Status: mental status grossly normal Objective Data Vital Signs Vital Signs: Vital Signs - 24 hr 08/12/24 22:00 08/13/24 06:00 08/13/24 13:57 Temperature 98 F 97.6 F 98.4 F Pulse Rate 85 59 L 64 Respiratory Rate 18 18 16 Blood Pressure 119/86 104/65 108/67 Pulse Oximetry 94 100 100 Oxygen Delivery Fraction of Inspired Oxygen 08/13/24 14:01 08/13/24 16:42 08/13/24 16:52 Temperature 97.3 F L Pulse Rate 64 67 71 Respiratory Rate 18 20 20 Blood Pressure 105/71 109/69 109/59 L Pulse Oximetry 98 100 99 Oxygen Delivery Room Air Room Air Room Air Fraction of Inspired Oxygen 08/13/24 17:02 08/13/24 21:32 Temperature Pulse Rate 60 85 Respiratory Rate 15 20 Blood Pressure 109/71 Pulse Oximetry 100 98 Oxygen Delivery Room Air Room Air Fraction of Inspired Oxygen 21 Intake/Output Intake/Output: Intake & Output 08/10/24 08/11/24 08/12/24 08/13/24 23:59 23:59 23:59 23:59 Intake Total 1270 3300 750 570 Balance 1270 3300 750 570 Meds/Results Medications: Active Medications Generic Name Dose Route Start Last Admin Trade Name Freq PRN Reason Stop Dose Admin Amoxicillin/Clavulanate Potassium 1 tablet 08/13/24 21:00 08/13/24 20:32 Amoxicillin/Clavulanate K 875-125 Mg Tab PO 1 tablet Q12HR DEVI Administration Dicyclomine HCl 20 mg 08/10/24 16:09 08/13/24 20:35 Dicyclomine Hcl 10 Mg Capsule PO 20 mg QID PRN Administration Abdominal Cramping Hydromorphone HCl 1 mg 08/10/24 09:41 08/10/24 20:48 Hydromorphone Hcl Inj (*Crx) 2 Mg/Ml Vial IV PUSH 1 mg Q4H PRN Administration Pain Rated 7-10 or breakthroug Lorazepam 0.5 mg 08/13/24 11:17 Lorazepam Inj (*Crx) 2 Mg/Ml Vial IV PUSH Q4HR PRN Anxiety Methocarbamol 500 mg 08/10/24 21:00 08/13/24 20:32 Methocarbamol 500 Mg Tablet PO 500 mg QID DEVI Administration Morphine Sulfate 4 mg 08/10/24 17:14 08/12/24 12:18 Morphine Sulfate (*Crx) 4 Mg/Ml Inj IV PUSH 4 mg Q3H PRN Administration Pain Rated 4-6 Nonformulary Drug 0 mg 08/11/24 12:40 08/13/24 08:36 Lurasidone 40 Mg PO 09/10/24 12:39 40 mg DAILY DEVI Administration Nonformulary Drug 0 mg 08/11/24 12:40 08/13/24 08:36 Lurasidone 20 Mg PO 09/10/24 12:39 20 mg DAILY DEVI Administration Olopatadine HCl 1 drop 08/12/24 21:00 08/13/24 17:46 Olopatadine 0.1% Ophth Soln 5 Ml Btl EACH EYE Not Given Q12HR DEVI Ondansetron HCl 4 mg 08/10/24 09:41 Ondansetron Inj 4 Mg/2 Ml Vial IV PUSH Q4H PRN Nausea Simethicone 125 mg 08/11/24 13:00 08/13/24 20:32 Simethicone 125 Mg Chew Tab PO 125 mg QID DEVI Administration Radiology Results: ITS Impressions Abdomen/Pelvis CT 08/10/24 07:50 Impression: Circumferential wall thickening of the distal sigmoid colon, with prominent stool upstream from this area, suspicious for colonic adenocarcinoma with early or partial large bowel obstruction. Infectious/inflammatory colitis would be a potential alternative consideration. Prominent appearance of the cervix, nonspecific. Transvaginal US 08/10/24 08:24 Impression: No definite evidence for torsion. Small amount of free fluid. Heterogeneous myometrium without discrete focal mass. Labs Labs: Laboratory Results - last 24 hr 08/13/24 06:00 WBC 6.4 RBC 3.75 L Hgb 12.4 Hct 38.5 MCV 102.7 H MCH 33.1 MCHC 32.2 RDW 13.3 Plt Count 328 MPV 10.8 H Sodium 139 Potassium 3.6 Chloride 107 Carbon Dioxide 22 Anion Gap 10 BUN 4 L Creatinine 0.77 Estim Creat Clear Calc 88 Estimated GFR > 60 Glucose 99 Calcium 9.3 Total Bilirubin 0.3 AST 47 H ALT 38 H Alkaline Phosphatase 66 Total Protein 7.3 Albumin 4.1 Carcinoembryonic Ag 0.4 Hospitalist MIPS Advance Care Plan I have confirmed that the patient's Advanced Care Plan is present, code status is documented, or surrogate decision maker is listed in patient medical record.: Yes Medication Reconciliation I have utilized all available resources to obtain, update and review the patients current medications (includes all prescriptions, OTC, herbals, cannabis, and nutritional supplements).: Yes
[2024-08-13] MEDS: MORPHINE SULFATE (*CRX) 4 MG/ML INJ IV PUSH (22:11)
[2024-08-14] MEDS: LORazepam INJ (*CRX) 2 MG/ML VIAL 0.5 MG IV PUSH (01:32)
[2024-08-14 06:00] VITALS: BP 100/55; PULSE 80; RESP 18; TEMP 36.8; O2SAT 100
[2024-08-14 08:00] VITALS: O2SAT 100
[2024-08-14] MEDS: LURASIDONE 20 MG PO (08:46)
[2024-08-14] MEDS: [UNRECOGNIZED DRUG - OTHER] PO (08:46)
[2024-08-14] MEDS: LURASIDONE 40 MG PO (08:47)
[2024-08-14] MEDS: [UNRECOGNIZED DRUG - OTHER] PO (08:47)
[2024-08-14] MEDS: SIMETHICONE 125 MG CHEW TAB PO ×2 (08:48→14:16)
[2024-08-14] MEDS: AMOXICILLIN/CLAVULANATE K 875-125 MG TAB 1 TABLET PO (08:48)
[2024-08-14] MEDS: methocarbamoL 500 MG TABLET PO ×2 (08:48→14:16)
[2024-08-14] MEDS: DICYCLOMINE HCL 10 MG CAPSULE 20 MG PO ×2 (08:51→15:20)
[2024-08-14] MEDS: MORPHINE SULFATE (*CRX) 4 MG/ML INJ IV PUSH (08:51)
[2024-08-14] MEDS: ONDANSETRON INJ 4 MG/2 ML VIAL IV PUSH (10:09)
--- NOTE | 2024-08-14 13:22 | P.PNGS_ITS ---
Progress Note: A&P Assessment and Plan (1) Large bowel obstruction: Code(s): K56.609 - Unspecified intestinal obstruction, unspecified as to partial versus complete obstruction Status: Acute Assessment and Plan: * Colonoscopy showed a single benign-appearing ulcer in the sigmoid colon. Biopsies pending. Her diet has been advanced and she did have a single episode of vomiting after taking her medication this morning, but feels much better this afternoon. She is not complaining of any abdominal pain. She has no other signs of an obstruction and has had a bowel movement since the colonoscopy. Plain films ordered by the hospitalist. If her KUB shows no signs of an obstruction, she is surgically stable for discharge from our standpoint. She can follow up with GI as an outpatient for further recomme ndations. Plan I have discussed the patient's case and plan of care with Dr. Salvador. Subjective Subjective Date/Time Seen: 08/14/24 13:22 Interval history: Colonoscopy yesterday showed a single benign-appearing ulcer in the colon. She reports having some lower abdominal pain after eating her dinner last night. This morning, she had breakfast and took all of her medications. Shortly after, she developed nausea and had an episode of vomiting. Since then, she has felt much better. She denies any abdominal pain, nausea, or further issues with vomiting. She does not have any bloating. She is passing flatus and had a BM last night that was liquid. KUB ordered by hospitalist. Exam Const: General: comfortable and no acute distress GI: Inspection: non-distended GI Palp: Yes Soft to palpation, Yes Tendernes s to palpation present (GI) (Very mild LLQ tenderness, unchanged), No Guarding due to palpation present (GI) and No Rebound tenderness present Auscultation: normal bowel sounds Objective Data Vital Signs Vital Signs: Vital Signs - 24 hr 08/13/24 13:57 08/13/24 14:01 08/13/24 16:42 Temperature 98.4 F 97.3 F L Pulse Rate 64 64 67 Respiratory Rate 16 18 20 Blood Pressure 108/67 105/71 109/69 Pulse Oximetry 100 98 100 Oxygen Delivery Room Air Room Air Fraction of Inspired Oxygen 08/13/24 16:52 08/13/24 17:02 08/13/24 21:32 Temperature Pulse Rate 71 60 85 Respiratory Rate 20 15 20 Blood Pressure 109/59 L 109/71 Pulse Oximetry 99 100 98 Oxygen Delivery Room Air Room Air Room Air Fraction of Inspired Oxygen 21 08/13/24 22:00 08/14/24 06:00 08/14/24 08:00 Temperature 96.9 F L 98.2 F Pulse Rate 75 80 Respiratory Rate 18 18 Blood Pressure 97/54 L 100/55 L Pulse Oximetry 100 100 100 Oxygen Delivery Room Air Fraction of Inspired Oxygen Intake/Output Intake/Output: Intake & Output 08/11/24 08/12/24 08/13/24 08/14/24 23:59 23:59 23:59 23:59 Intake Total 3300 750 570 145 Balance 3300 750 570 145 Meds/Results Medications: Active Medications Generic Name Dose Route Start Last Admin Trade Name Freq PRN Reason Stop Dose Admin Amoxicillin/Clavulanate Potassium 1 tablet 08/13/24 21:00 08/14/24 08:48 Amoxicillin/Clavulanate K 875-125 Mg Tab PO 1 tablet Q12HR DEVI Administration Dicyclomine HCl 20 mg 08/10/24 16:09 08/14/24 08:51 Dicyclomine Hcl 10 Mg Capsule PO 20 mg QID PRN Administration Abdominal Cramping Hydromorphone HCl 1 mg 08/10/24 09:41 08/10/24 20:48 Hydromorphone Hcl Inj (*Crx) 2 Mg/Ml Vial IV PUSH 1 mg Q4H PRN Administration Pain Rated 7-10 or breakthroug Methocarbamol 500 mg 08/10/24 21:00 08/14/24 08:48 Methocarbamol 500 Mg Tablet PO 500 mg QID DEVI Administration Morphine Sulfate 4 mg 08/10/24 17:14 08/14/24 08:51 Morphine Sulfate (*Crx) 4 Mg/Ml Inj IV PUSH 4 mg Q3H PRN Administration Pain Rated 4-6 Nonformulary Drug 0 mg 08/11/24 12:40 08/14/24 08:47 Lurasidone 40 Mg PO 09/10/24 12:39 40 mg DAILY DEVI Administration Nonformulary Drug 0 mg 08/11/24 12:40 08/14/24 08:46 Lurasidone 20 Mg PO 09/10/24 12:39 20 mg DAILY DEVI Administration Olopatadine HCl 1 drop 08/12/24 21:00 08/14/24 08:59 Olopatadine 0.1% Ophth Soln 5 Ml Btl EACH EYE Not Given Q12HR DEVI Ondansetron HCl 4 mg 08/10/24 09:41 08/14/24 10:09 Ondansetron Inj 4 Mg/2 Ml Vial IV PUSH 4 mg Q4H PRN Administration Nausea Simethicone 125 mg 08/11/24 13:00 08/14/24 08:48 Simethicone 125 Mg Chew Tab PO 125 mg QID DEVI Administration Radiology Results: ITS Impressions Abdomen/Pelvis CT 08/10/24 07:50 Impression: Circumferential wall thickening of the distal sigmoid colon, with prominent stool upstream from this area, suspicious for colonic adenocarcinoma with early or partial large bowel obstruction. Infectious/inflammatory colitis would be a potential alternative consideration. Prominent appearance of the cervix, nonspecific. Transvaginal US 08/10/24 08:24 Impression: No definite evidence for torsion. Small amount of free fluid. Heterogeneous myometrium without discrete focal mass.
[2024-08-14 14:00] VITALS: BP 101/66; PULSE 74; RESP 18; TEMP 35.9; O2SAT 100
--- NOTE | 2024-08-14 14:14 | WPDANESPN ---
Anes - Prog Note Post-Op Date/Time: 08/14/24 14:14 Cardiovascular status: normal Respiratory status: normal Airway patency: baseline Mental status: baseline Post-Op hydration status: normal Vital Signs: Last Vital Signs Temp 96.6 F L 08/14/24 14:00 Pulse 74 08/14/24 14:00 Resp 18 08/14/24 14:00 BP 101/66 08/14/24 14:00 Pulse Ox 100 08/14/24 14:00 O2 Del Method Room Air 08/14/24 08:00 FiO2 21 08/13/24 21:32 Pain Score (VAS): 0/10 I/O: Intake & Output 08/13/24 08/14/24 08/14/24 23:59 07:59 15:59 Intake Total 220 145 Balance 220 145 Laboratory Tests 08/13/24 06:00 08/13/24 06:00 Post-procedural complaints: none Patient Feedback: Patient satisfied with anesthetic care.
--- NOTE | 2024-08-14 14:26 | P.DS_ITS ---
DS: Admitting Diagnosis Discharge Date 08/14/24 Admitting Diagnosis Abdominal pain DS: Discharge Diagnosis Discharge Diagnosis (1) Sigmoid ulcer: Code(s): K63.3 - Ulcer of intestine Status: Acute DS: Summary Hospital Course Hospital Course: Patient is a 44-year-old female with a past medical history of ADHD, bipolar, Suboxone use visited ED due to abdominal pain. Patient is originally from [place] but later moved to [place] and currently lives in [place]. 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 Patient mother had ovarian cancer and father had pancreatic cancer and she underwent genetic counseling and she was positive for CHECK 2 gene. She was advised to have yearly colonoscopy. Patient had a colonoscopy 5 years ago which was normal. And she was also advised to undergo mammogram and MRI of the breast every 6 months. Her last mammogram was 3 years ago which was normal. Patient reports that she had recently started compound; type injection 3 weeks ago. After starting the semaglutide patient experienced severe constipation and she was not able to remember when she had the last good bowel movement. Pertinent ED labs: WBC 18.1, hemoglobin 13.5, hematocrit 41.6, platelet to 417, sodium 138, potassium 4, chloride 102, creatinine 0.8, GFR greater than 60. UA Positive for leukocyte esterase and WBC 11-20 Abdomen/pelvis CT shows:Circumferential wall thickening of the distal sigmoid colon, with prominent stool upstream from this area, suspicious for colonic adenocarcinoma with early or partial large bowel obstruction. Infectious/inflammatory colitis would be a potential alternative consideration.Prominent appearance of the cervix, nonspecific. Transvaginal ultrasound :No definite evidence for torsion.Small amount of free fluid.Heterogeneous myometrium without discrete focal mass. Patient is admitted in the setting of possible colitis vs urosepsis vs suspicious colonic adeno carcinoma vs partial large bowel obstruction. Her possible bowel obstruction could been aggravated by semaglutide and Suboxone. Currently will hold Suboxone and continue high-dose opiates for abdominal pain and restart the Suboxone within 7 days possibly on Tuesday after having the colonoscopy. Will repeat the urine and check for buprenorphine before starting Suboxone. Surgery evaluated the patient and started on clear liquid diet. Patient will possibly undergo colonoscopy Tuesday to rule out colonic adenocarcinoma. patient underwent colonoscopy which showed sigmoid ulcer, with some degree of inflammation. Patinet discharged on levaquin and flagyl x 7 dyas the transient colonic obstruction is uspected to be from semaglutide, Patient instructed to discontinue Semaglutide, it was not on her med list thus she was instructd to discontinue it. Will continue Suboxone for now and will follow up with per psych/prescriber for taper regirmen. Patient toelrated regular diet today adn KUB thsi mornign is normal. discharged hmoe today F/u with PCP in 3-5 days, f/u with Gen surgery as instructed Time Spent with Patient Time attestation: Total time spent providing and/or coordinating discharge services: DS: Data Data Completed and Pending Pending studies at discharge: Pending at discharge 08/13/24 16:38 Surgical [PTH] Routine Labs on day of discharge: Preliminary micro results at discharge 08/10/24 13:23 Blood Culture - Preliminary Blood 08/10/24 13:21 Blood Culture - Preliminary Blood Discharge Plan Discharge Attending physician on discharge: Leela Hale Consulting providers: Lan Salvador Discharging Clinician: Leela Hale Anticipated Discharge Date/Time: 08/14/24 14:21 Patient Disposition: Home Activity: as tolerated Diet: as tolerated Discharge Instructions: Stop Semaglutide Contineu Suboxone and follow up with prescriber for taper discussion and alternatives. Patient Instructions: Antibiotic Form Patient Language: Kuwaiti Stand Alone Forms: General Discharge Information Follow-up/Referrals: UNKNOWN,DOCTOR [Primary Care Provider] - (F/u with PCP in 3-5 days ) Lan Salvador MD [Physician] - (F/u with Gen surgery as instructed ) Discharge Medications: New levofloxacin 750 mg tablet 750 mg PO DAILY 7 Days Qty: 7 0RF metronidazole 500 mg tablet 500 mg PO Q8H 7 Days Qty: 21 0RF Continued buprenorphine-naloxone 8-2 mg tablet, sublingual 1 tablet SUBLINGUAL DAILY lurasidone 60 mg tablet 60 mg PO DAILY methylphenidate HCl 36 mg tablet extended release 24hr 36 mg PO .Q12 Date of admission: 08/10/24 09:41 Primary Care Provider: UNKNOWN,DOCTOR Admitting Provider: Juan Ramon Stubbs Attending physician on admission: Juan Ramon Stubbs Condition: Serious
== END 2024-08-14 17:52 | disposition home or self-care (01) | DRG 394 ==
LOC: ANHED 10:28 → ANH3MEDSUR 11:09
PROVIDERS: Emergency Medicine; Internal Medicine Gastroenterology; Surgery; Admitting Provider General Practice; Emergency Provider Emergency Medicine; Visit Provider Internal Medicine
PROC: 0DJD8ZZ Inspection of Lower Intestinal Tract, Via Natural or Artificial Opening Endoscopic (ICD-10-PCS; CPT 45378; principal; 2024-08-13 15:15)
DX: K63.3 Ulcer of intestine (principal); K56.600 Partial intestinal obstruction, unspecified as to cause; N39.0 Urinary tract infection, site not specified; T50.995A Adverse effect of other drugs, medicaments and biological substances, initial encounter; F90.9 Attention-deficit hyperactivity disorder, unspecified type; F31.9 Bipolar disorder, unspecified; D72.829 Elevated white blood cell count, unspecified; E66.9 Obesity, unspecified; F11.10 Opioid abuse, uncomplicated; Z68.31 Body mass index [BMI] 31.0-31.9, adult; Z87.891 Personal history of nicotine dependence
CPT/HCPCS: 36415; 74018; 74177; 76830; 80053; 81001; 81025; 82378; 83690; 85025; 85027; 85610; 86850; 86900; 86901; 87040; 87086; 88305; 96361; 96365; 96375; 96376; 99285; A9270; J0696; J1171; J2060; J2270; J2405; J2470; J2543; J2704; J7030; J7120; J7121; Q9967